=== PATIENT | male | born 1955 | race Caucasian/White ===

== ENCOUNTER → 2022-05-26 09:19 | Outpatient (BNVA) | payer OTHER, SELFPAY | PROVIDERS: PCP Internal Medicine; Visit Provider Nurse Practitioner Family | DX: Z13.89 Encounter for screening for other disorder (principal) ==

== ENCOUNTER 2022-09-01 09:12 | Day surgery (SDC) | payer OTHER, SELFPAY ==
[2022-08-28 09:15] VITALS: BMI 26.5
--- NOTE | 2022-08-29 10:44 | P.CONAN_ITS ---
Documented by User: Karely Reynaga NP 08/29/22 10:44 HPI - Anesthesia Eval Consult details Narrative: 67yo M for Colonoscopy [facility] Past Medical History Medical History (Updated 08/28/22 @ 09:19 by Marita Barros RN) Anxiety Arthritis Diverticulitis HTN (hypertension) Family History Family History (Updated 05/26/22 @ 09:42 by Annette Rapp) Father Prostate cancer HTN (hypertension) Brother Prostate cancer Mother HTN (hypertension) Diabetes Sister Breast cancer Surgical History Surgical History (Updated 09/01/22 @ 10:05 by Maritza Soni) H/O colonoscopy Hx of hernia repair Social History Social History (Updated 05/26/22 @ 09:38 by Annette Rapp) Household Members: Spouse Are you a primary care management associate to a significant other at home: No Do you presently have visiting nurse or other home services: No Alcohol intake: current Alcohol intake frequency: holidays/special occasions only Patient Tobacco Use Status: Never used Tobacco Use of substances other than those prescribed or required for medical reasons: No Have you been hit, kicked, punched, or otherwise hurt by someone within the past year? If so, by whom?: No Advance Directives: No Advance Directives Information Provided: Yes Advance Directives on File: No Recently lost weight without trying: No Eating poorly because of decreased appetite: No Nutrition Risks: No Nutritional Risk Poor oral hygiene: No Meds Allergies Allergy/AdvReac Type Severity Reaction Status Date / Time Seafood Allergy Severe MUSSELS-THROAT Uncoded 09/01/22 09:58 SWELLING Home Medications Medication Instructions Recorded Confirmed Last Taken Type fluorouracil 5 % topical cream 1 appl topical BEDTIME 05/26/22 09/01/22 Unknown History fluticasone propionate 50 2 spray intranasal DAILY 05/26/22 09/01/22 Unknown History mcg/actuation nasal spray,suspension lisinopril 20 mg tablet 20 mg PO BEDTIME 05/26/22 09/01/22 08/31/22 History lorazepam 0.5 mg tablet 0.5 mg PO Q4H PRN Anxiety 05/26/22 09/01/22 Unknown History metoprolol succinate 50 mg 50 mg PO BEDTIME 05/26/22 09/01/22 08/31/22 History tablet,extended release 24 hr PreserVision AREDS-2 1 tab PO BID 08/28/22 09/01/22 Unknown History Exam Exam Date and Time: August 29, 2022 1044 Height,Weight and Vital Signs: Height 5 ft 10 in Weight 83.915 kg Assessment and Plan Assessment Anesthesia Assessment: Chart Reviewed Documented by User: Marina Queen MD 09/01/22 10:35 [facility] Past Medical History Medical History (Updated 08/28/22 @ 09:19 by Marita Barros RN) Anxiety Arthritis Diverticulitis HTN (hypertension) Family History Family History (Updated 05/26/22 @ 09:42 by Annette Rapp) Father Prostate cancer HTN (hypertension) Brother Prostate cancer Mother HTN (hypertension) Diabetes Sister Breast cancer Family history of problems with anesthesia: No Surgical History Surgical History (Updated 09/01/22 @ 10:05 by Maritza Soni) H/O colonoscopy Hx of hernia repair History of Problems with Anesthesia: No Social History Social History (Updated 05/26/22 @ 09:38 by Annette Rapp) Household Members: Spouse Are you a primary care management associate to a significant other at home: No Do you presently have visiting nurse or other home services: No Alcohol intake: current Alcohol intake frequency: holidays/special occasions only Patient Tobacco Use Status: Never used Tobacco Use of substances other than those prescribed or required for medical reasons: No Have you been hit, kicked, punched, or otherwise hurt by someone within the past year? If so, by whom?: No Advance Directives: No Advance Directives Information Provided: Yes Advance Directives on File: No Recently lost weight without trying: No Eating poorly because of decreased appetite: No Nutrition Risks: No Nutritional Risk Poor oral hygiene: No Meds Allergies Allergy/AdvReac Type Severity Reaction Status Date / Time Seafood Allergy Severe MUSSELS-THROAT Uncoded 09/01/22 09:58 SWELLING Home Medications Medication Instructions Recorded Confirmed Last Taken Type fluorouracil 5 % topical cream 1 appl topical BEDTIME 05/26/22 09/01/22 Unknown History fluticasone propionate 50 2 spray intranasal DAILY 05/26/22 09/01/22 Unknown History mcg/actuation nasal spray,suspension lisinopril 20 mg tablet 20 mg PO BEDTIME 05/26/22 09/01/22 08/31/22 History lorazepam 0.5 mg tablet 0.5 mg PO Q4H PRN Anxiety 05/26/22 09/01/22 Unknown History metoprolol succinate 50 mg 50 mg PO BEDTIME 05/26/22 09/01/22 08/31/22 History tablet,extended release 24 hr PreserVision AREDS-2 1 tab PO BID 08/28/22 09/01/22 Unknown History Exam Airway Mallampati Class: II TM Dist: >3cm Neck ROM: Full Heart: 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
[2022-09-01 10:05] VITALS: BP 151/81; PULSE 69; RESP 16; TEMP 36.5; O2SAT 98
[2022-09-01] MEDS: Lactated Ringers 1,000 ML 100 ML IVCONT (10:20)
--- NOTE | 2022-09-01 10:46 | MHC.SHP ---
Pre-Procedural Eval Section A Date of Service: 09/01/22 The patient is an INPATIENT: No The History & Physical has been completed within 30 days and I have reviewed it.: No Section B Chief Complaint: Screening Relevant Family History (Specify if Yes): No Relevant Social History: None Present Medications: see Short Stay Collaborative assessment Medical History: Significant History (hypertension, arthritis) History of Previous Operations: Relevant previous surgery/procedure and date(s) (Hx of hernia repair) Allergies: Allergies Allergy/AdvReac Type Severity Reaction Status Date / Time Seafood Allergy Severe MUSSELS-THROAT Uncoded 09/01/22 09:58 SWELLING Review of Systems Sugical H&P ROS: Negative: Constitution, Cardiovascular, Respiratory and Gastrointestinal Exam Surgical H&P Exam: Normal: Heart, Normal: Lungs, Normal: Extremities and Normal: Abdomen Plan Diagnosis/Plan: Unchanged I have reviewed the history and physical and performed a pertinent physical examination on my patient. No changes have occurred unless specified. Time Spent With Patient Time: Total time managing care of this patient today ____ minutes.
--- NOTE | 2022-09-01 12:44 | W.PM.OPN ---
Operative Note Operative Note Date of Service: 09/01/22 Narrative: COLONOSCOPY TILL CECUM WITH SNARE POLYPECTOMY, SUBMUCOSAL INJECTION AND HEMOCLIP PLACEMENT Pre-op diagnosis: Colon cancer screening Post-op diagnosis:? Colon polyps, diverticulosis, hemorrhoids Endoscopist:? Carlos Eduardo Ferrer MD Anesthesia:?MAC Consent: Indications for the procedure and potential complications of bleeding, perforation, reaction to medications and missed diagnosis were discussed with the patient and informed consent was obtained. Instrument: Olympus CF H 190 L variable stiffness adult colonoscope Monitoring: Vital signs and clinical assessment, intermittent blood pressure monitoring, continuous EKG monitoring, Pulse oximetry and Carbon Dioxide monitoring were done throughout the procedure. Please see anesthesia flowsheet. Colon withdrawl time was 24 minutes. Procedure: The patient was placed in the left lateral decubitis position and pre-procedure medications were administered. After a digital rectal examination of the ano-rectum, the video colonoscope was inserted into the rectum and advanced through the colon to the cecum. The colonoscope was slowly withdrawn in a retrograde panoramic fashion and the colon mucosa was carefully examined including a retroflexed view of the rectum. Findings and interventions are described below. Procedure Difficulty: Without difficulty Findings: Terminal Ileum: Not evaluated Cecum: A 2.5 x 2 cms flat polyp in the cecum. Polyp was raised with 3 cc of Eleview and removed with hot snare. Residual polyp at the margins was ablated with cautery using the snare tip. Polypectomy site was closed with 1 hemoclip. Ascending Colon: A 10 mm sessile polyp in the proximal AC removed with a hot snare and polyp was not retrieved. Scattered moderate diverticulosis throughout the colon Transverse Colon: Scattered moderate diverticulosis throughout the colon Descending Colon: Scattered moderate diverticulosis throughout the colon Sigmoid Colon: Moderate diverticulosis Rectum: Normal Ano-rectum: Moderate internal hemorrhoids Colon preparation: Good after some irrigation - scattered stool balls in the left colon due to diverticulosis Impression and Post Procedure Diagnosis: Colonoscopy Findings: One large and one medium sized polyps removed Moderate diverticulosis seen in the entire colon Moderate hemorrhoids on retroflexed exam. Plan: Letter will be sent with pathology results Repeat Colonoscopy interval based on path results - in 1 year if polyps are adenomatous (to check polypectomy site in the cecum) and 10 years if polyps are hyperplastic. Above findings were reviewed with the patient and colon polyps and diverticulosis handouts were given in the discharge area
[2022-09-01 12:45] VITALS: BP 118/62; PULSE 70; RESP 16; TEMP 36.3; O2SAT 97
[2022-09-01 13:00] VITALS: BP 139/85; PULSE 62; RESP 16; TEMP 36.1; O2SAT 99
== END 2022-09-01 14:04 | disposition home or self-care (01) ==
PROVIDERS: PCP Internal Medicine; Visit Provider Internal Medicine Gastroenterology
PROC: 0DJD8ZZ Inspection of Lower Intestinal Tract, Via Natural or Artificial Opening Endoscopic (ICD-10-PCS; CPT 45378; principal; 2022-09-01 11:10)
DX: Z12.11 Encounter for screening for malignant neoplasm of colon (principal); D12.0 Benign neoplasm of cecum; K63.5 Polyp of colon; K57.30 Diverticulosis of large intestine without perforation or abscess without bleeding; K64.8 Other hemorrhoids; I10 Essential (primary) hypertension; Z79.899 Other long term (current) drug therapy
CPT/HCPCS: 45385; 45381; 88305

== ENCOUNTER 2022-09-02 14:25 | Observation (INO) | payer OTHER, SELFPAY ==
[2022-09-02 14:36] VITALS: BP 167/98; PULSE 89; RESP 20; TEMP 35.9; O2SAT 95; BMI 26.2
--- NOTE | 2022-09-02 14:37 | ED.GIBLEED ---
HPI - GI Bleed General Chief complaint: GI Bleed <LACY Marie - Last Filed: 09/02/22 14:43> Stated complaint: Colonoscopy T-1/Rectal bleed <LACY Marie - Last Filed: 09/02/22 14:43> Time Seen by Provider: 09/02/22 15:02 <LACY Marie - Last Filed: 09/02/22 14:43> Source: patient <Lorna Carty MD - Last Filed: 09/02/22 18:36> Mode of arrival: ambulatory <Lorna Carty MD - Last Filed: 09/02/22 18:36> Limitations: no limitations <Lorna Carty MD - Last Filed: 09/02/22 18:36> History of Present Illness HPI Narrative: Patient comes to the emergency room complaining of a GI bleed. Yesterday, he had a colonoscopy, 2 polyps were removed. Patient states that he has mild abdominal cramping, this morning he had 2 small bowel movements, then he had 2 larger bowel movements mostly containing blood clots. Patient denies chest pain, shortness of breath, lightheadedness. Patient spoke with Dr. Ferrer, who recommended him to come to the emergency room and be admitted for observation and possible colonoscopy in the morning. <Lorna Carty MD - Last Filed: 09/02/22 18:36> Related Data Home medications: Home Medications Medication Instructions Recorded Confirmed fluticasone propionate 50 2 spray intranasal BEDTIME 05/26/22 09/02/22 mcg/actuation nasal spray,suspension lisinopril 20 mg tablet 20 mg PO BEDTIME 05/26/22 09/02/22 lorazepam 0.5 mg tablet 0.5 mg PO Q4H PRN Anxiety 05/26/22 09/02/22 metoprolol succinate 50 mg 50 mg PO BEDTIME 05/26/22 09/02/22 tablet,extended release 24 hr vit C 250 mg-vit E 90 mg-zinc 40 1 tab PO BID 09/02/22 09/02/22 mg-copper 1 [id number] capsule (PreserVision AREDS-2) <LACY Marie - Last Filed: 09/02/22 14:43> Allergies/Adverse reactions: Allergies Allergy/AdvReac Type Severity Reaction Status Date / Time Seafood Allergy Severe MUSSELS-THROAT Uncoded 09/01/22 09:58 SWELLING <LACY Marie - Last Filed: 09/02/22 14:43> Review of Systems Review of Systems: Constitutional : No Weight loss, No Fever, No Chills, No Night Sweats, No Fatigue, No Malaise ENT/Mouth : No Hearing loss, No Ear Pain, No Nasal Congestion, No Sinus Pain, No Hoarseness, No sore throat, No Rhinorrhea, No Swallowing Difficulty Eyes: No Eye Pain, No Swelling, No Redness, No Foreign Body, No Discharge, No Vision Changes Cardiovascular : No Chest Pain, No SOB, No Dyspnea on Exertion, No Orthopnea, No Edema, No Palpitations Respiratory : No Cough, No Sputum, No Wheezing, No Smoke Exposure, No Dyspnea Gastrointestinal : No Nausea, No Vomiting, No Diarrhea, No Constipation, lining of abdominal cramping, complaining of rectal bleeding Genitourinary : no irregular bleeding, No Dysuria, No Urinary Frequency, No Hematuria, No Urinary Incontinence, No Urgency, No Flank Pain, No Urinary Flow Changes, No Hesitancy Musculoskeletal : No joint pain, No Myalgias, No Joint Swelling Skin : No Skin Lesions, No rash Neuro : No Weakness, No Numbness, No Paresthesias, No Loss of Consciousness, No Dizziness, No Headache Psych : No Anxiety/Panic, No Depression, No SI/HI/AH/VH, No Social Issues, Heme/Lymph: No Bruising, No Bleeding,No Lymphadenopathy Endocrine : No Polyuria, No Polydipsia, No Temperature Intolerance <Lorna Carty MD - Last Filed: 09/02/22 18:36> [facility] Past Medical History Medical History: Medical History Anxiety Arthritis Diverticulitis HTN (hypertension) <LACY Marie - Last Filed: 09/02/22 14:43> Surgical History: Surgical History (Updated 09/01/22 @ 10:05 by Maritza Soni) H/O colonoscopy Hx of hernia repair <LACY Marie - Last Filed: 09/02/22 14:43> Family History Family History: Family History (Updated 05/26/22 @ 09:42 by Annette Rapp) Father Prostate cancer HTN (hypertension) Brother Prostate cancer Mother HTN (hypertension) Diabetes Sister Breast cancer <LACY Marie - Last Filed: 09/02/22 14:43> Social History Social History: Social History (Updated 05/26/22 @ 09:38 by Annette Rapp) Household Members: Spouse Are you a primary certified social workers in health care to a significant other at home: No Do you presently have visiting nurse or other home services: No Alcohol intake: current Alcohol intake frequency: a few times a month Patient Tobacco Use Status: Never used Tobacco Smoked in Last 30 Days: No Advance Directives: No Advance Directives Information Provided: Yes <LACY Marie - Last Filed: 09/02/22 14:43> Physical Exam Vital Signs: Vital Signs: Last Vital Signs Temp 98.1 F 09/02/22 15:28 Pulse 103 H 09/02/22 15:28 Resp 20 09/02/22 15:28 BP 147/92 H 09/02/22 15:28 Pulse Ox 95 09/02/22 15:28 O2 Del Method Room Air 09/02/22 15:28 BMI result Body Mass Index 26.2 <LACY Marie - Last Filed: 09/02/22 14:43> Vital Signs: Last Vital Signs Temp 98.1 F 09/02/22 15:28 Pulse 103 H 09/02/22 15:28 Resp 20 09/02/22 15:28 BP 147/92 H 09/02/22 15:28 Pulse Ox 95 09/02/22 15:28 O2 Del Method Room Air 09/02/22 15:28 BMI result Body Mass Index 26.2 <Lorna Carty MD - Last Filed: 09/02/22 18:36> Const: Other: Appearance: Alert. Oriented X3. No acute distress. Eyes: Pupils equal, round and reactive to light. ENT: Pharynx normal. Neck: Normal inspection. Neck supple. No lymph nodes noted. No crepitus CVS: Normal heart rate and rhythm. Pulses normal. Normal S1 and S2 Respiratory: No respiratory distress. Breath sounds normal. No Wheezing. No rales Abdomen: Soft and nontender. No rigidity. No distention. Digital rectal exam shows bright red blood Skin: Skin warm and dry. Normal skin color. Normal skin turgor. Extremities: No lower extremity edema. No Lacerations. No Rash Neuro: Oriented X 3. No motor deficit. No sensory deficit. Moving all extremities. No slurred speech. CN 2 through 12 grossly intact Psych: calm, cooperative, normal affect <Lorna Carty MD - Last Filed: 09/02/22 18:36> Course Course Course Narrative: RME: 67yo M w/PMHx anxiety, arthritis, diverticulitis, HTN, sent to ED by Dr. Ferrer c/o dark red rectal bleeding w/clots x1 hour. Pt had outpatient colonoscopy yesterday with polp removal. denies N/V/D. Dr. Ferrer recommending admission for observation and possible repeat colonoscopy tomorrow EKG, labs, UA, occult stool ordered Full HPI, ROS and PE to be performed by primary ED provider. <LACY Marie - Last Filed: 09/02/22 14:43> Medical Decision Making Medical Decision Making [facility] Narrative: -Dr. Ferrer requested admission/observation -patient's hemoglobin/hematocrit is stable -patient's guaiac test is positive. If patient continues bleeding, he may need a repeat colonoscopy in the morning per Dr. Ferrer -Dr. Gómez saw the patient, recommended no CT scan for GI bleed -discussed the patient with the hospitalist team, patient being admitted <Lorna Carty MD - Last Filed: 09/02/22 18:36> Differential Diagnosis Differential Diagnoses: The differential diagnosis associated with the presentation includes (Post colonoscopy GI bleed, internal hemorrhoid, perforation) <Lorna Carty MD - Last Filed: 09/02/22 18:36> Admission/Observation Consideration of admission/observation: Escalation of care including admission/observation considered <Lorna Carty MD - Last Filed: 09/02/22 18:36> Consult Healthcare Provider Management of the patient was discussed with: Hospitalist and Microfilm Clerk <Lorna Carty MD - Last Filed: 09/02/22 18:36> Lab Data [facility] Lab Attestation statement: I reviewed the patient's lab results. <Lorna Carty MD - Last Filed: 09/02/22 18:36> Result Diagrams: 09/02/22 15:20 09/02/22 15:20 <LACY Marie - Last Filed: 09/02/22 14:43> Labs: Lab Results 09/02/22 09/02/22 09/02/22 Range/Units 15:14 15:19 15:20 WBC 6.0 (4.8-10.8) X10*3/uL RBC 5.19 (4.60-5.80) X10*6/uL Hgb 16.3 (14.0-18.0) g/dl Hct 45.7 (42.0-52.0) % MCV 88.1 (80.0-98.0) fL MCH 31.4 (27.0-33.0) pg MCHC 35.7 (31.0-36.0) g/dl RDW 11.6 (11.0-16.0) % Plt Count 265 (160-400) X10*3/uL MPV 9.8 (9.4-12.4) fL Immature Gran % (Auto) 0.3 (0.0-0.4) % Neut % (Auto) 84.6 H (45-73) % Lymph % (Auto) 7.0 L (20-40) % [place] % (Auto) 7.3 (2-11) % Eos % (Auto) 0.3 (0-4) % Baso % (Auto) 0.5 (0-2) % Lymph # (Auto) 0.4 L (1.2-4.9) X10*3/uL [place] # (Auto) 0.4 (0.1-1.2) X10*3/uL Eos # (Auto) 0.0 (0.0-0.4) X10*3/uL Baso # (Auto) 0.0 (0.0-0.2) X10*3/uL Abs Immat Gran (auto) 0.02 (0.00-0.03) X10*3/uL Absolute Neuts (auto) 5.1 (2.0-8.3) x10*3/uL Absolute Nucleated RBC 0.000 (0.0-0.012) X10*3/uL Nucleated RBC % (auto) 0.0 (0.0-0.2) /100WBC PT (10.0-13.1) SEC INR (0.9-1.1) Sodium (135-145) mmol/L Potassium (3.3-5.1) mmol/L Chloride (96-108) mmol/L Carbon Dioxide (22-29) mmol/L Anion Gap (12-20) BUN (9-16) mg/dL Creatinine (0.5-1.4) mg/dL Estim Creat Clear Calc Estimated GFR Random Glucose (60-115) mg/dL Calcium (8.4-10.2) mg/dL Magnesium (1.6-2.6) mg/dL Total Bilirubin (0.0-1.0) mg/dL AST (5-37) U/L ALT (0-40) U/L Alkaline Phosphatase (39-117) U/L Total Protein (6.5-8.0) g/dL Albumin (3.5-5.0) g/dL Lipase (8-78) U/L Urine Color Urine Appearance Urine pH (5.0-9.0) Ur Specific [place] (1.005-1.025) Urine Protein (Neg-Trace) mg/dL Urine Glucose (UA) (Negative) mg/dL Urine Ketones (Negative) mg/dL Urine Blood (Negative) Urine Nitrite (Negative) Ur Leukocyte Esterase (Negative) Stool Occult Blood POSITIVE (NEGATIVE) Blood Type AB Positive Antibody Screen NEGATIVE 09/02/22 09/02/22 09/02/22 Range/Units 15:20 15:20 15:44 WBC (4.8-10.8) X10*3/uL RBC (4.60-5.80) X10*6/uL Hgb (14.0-18.0) g/dl Hct (42.0-52.0) % MCV (80.0-98.0) fL MCH (27.0-33.0) pg MCHC (31.0-36.0) g/dl RDW (11.0-16.0) % Plt Count (160-400) X10*3/uL MPV (9.4-12.4) fL Immature Gran % (Auto) (0.0-0.4) % Neut % (Auto) (45-73) % Lymph % (Auto) (20-40) % [place] % (Auto) (2-11) % Eos % (Auto) (0-4) % Baso % (Auto) (0-2) % Lymph # (Auto) (1.2-4.9) X10*3/uL [place] # (Auto) (0.1-1.2) X10*3/uL Eos # (Auto) (0.0-0.4) X10*3/uL Baso # (Auto) (0.0-0.2) X10*3/uL Abs Immat Gran (auto) (0.00-0.03) X10*3/uL Absolute Neuts (auto) (2.0-8.3) x10*3/uL Absolute Nucleated RBC (0.0-0.012) X10*3/uL Nucleated RBC % (auto) (0.0-0.2) /100WBC PT 11.7 (10.0-13.1) SEC INR 1.0 (0.9-1.1) Sodium 141 (135-145) mmol/L Potassium 4.3 (3.3-5.1) mmol/L Chloride 105 (96-108) mmol/L Carbon Dioxide 28 (22-29) mmol/L Anion Gap 12 (12-20) BUN 11 (9-16) mg/dL Creatinine 0.87 (0.5-1.4) mg/dL Estim Creat Clear Calc 88.9 Estimated GFR > 60 Random Glucose 100 (60-115) mg/dL Calcium 9.8 (8.4-10.2) mg/dL Magnesium 2.2 (1.6-2.6) mg/dL Total Bilirubin 2.6 H (0.0-1.0) mg/dL AST 31 (5-37) U/L ALT 52 H (0-40) U/L Alkaline Phosphatase 71 (39-117) U/L Total Protein 7.0 (6.5-8.0) g/dL Albumin 4.3 (3.5-5.0) g/dL Lipase 40 (8-78) U/L Urine Color Yellow Urine Appearance Clear Urine pH 5.5 (5.0-9.0) Ur Specific [place] 1.020 (1.005-1.025) Urine Protein Negative (Neg-Trace) mg/dL Urine Glucose (UA) Negative (Negative) mg/dL Urine Ketones Trace (Negative) mg/dL Urine Blood Negative (Negative) Urine Nitrite Negative (Negative) Ur Leukocyte Esterase Negative (Negative) Stool Occult Blood (NEGATIVE) Blood Type Antibody Screen <LACY Marie - Last Filed: 09/02/22 14:43> Lab Results 09/02/22 09/02/22 09/02/22 Range/Units 15:14 15:19 15:20 WBC 6.0 (4.8-10.8) X10*3/uL RBC 5.19 (4.60-5.80) X10*6/uL Hgb 16.3 (14.0-18.0) g/dl Hct 45.7 (42.0-52.0) % MCV 88.1 (80.0-98.0) fL MCH 31.4 (27.0-33.0) pg MCHC 35.7 (31.0-36.0) g/dl RDW 11.6 (11.0-16.0) % Plt Count 265 (160-400) X10*3/uL MPV 9.8 (9.4-12.4) fL Immature Gran % (Auto) 0.3 (0.0-0.4) % Neut % (Auto) 84.6 H (45-73) % Lymph % (Auto) 7.0 L (20-40) % [place] % (Auto) 7.3 (2-11) % Eos % (Auto) 0.3 (0-4) % Baso % (Auto) 0.5 (0-2) % Lymph # (Auto) 0.4 L (1.2-4.9) X10*3/uL [place] # (Auto) 0.4 (0.1-1.2) X10*3/uL Eos # (Auto) 0.0 (0.0-0.4) X10*3/uL Baso # (Auto) 0.0 (0.0-0.2) X10*3/uL Abs Immat Gran (auto) 0.02 (0.00-0.03) X10*3/uL Absolute Neuts (auto) 5.1 (2.0-8.3) x10*3/uL Absolute Nucleated RBC 0.000 (0.0-0.012) X10*3/uL Nucleated RBC % (auto) 0.0 (0.0-0.2) /100WBC PT (10.0-13.1) SEC INR (0.9-1.1) Sodium (135-145) mmol/L Potassium (3.3-5.1) mmol/L Chloride (96-108) mmol/L Carbon Dioxide (22-29) mmol/L Anion Gap (12-20) BUN (9-16) mg/dL Creatinine (0.5-1.4) mg/dL Estim Creat Clear Calc Estimated GFR Random Glucose (60-115) mg/dL Calcium (8.4-10.2) mg/dL Magnesium (1.6-2.6) mg/dL Total Bilirubin (0.0-1.0) mg/dL AST (5-37) U/L ALT (0-40) U/L Alkaline Phosphatase (39-117) U/L Total Protein (6.5-8.0) g/dL Albumin (3.5-5.0) g/dL Lipase (8-78) U/L Urine Color Urine Appearance Urine pH (5.0-9.0) Ur Specific [place] (1.005-1.025) Urine Protein (Neg-Trace) mg/dL Urine Glucose (UA) (Negative) mg/dL Urine Ketones (Negative) mg/dL Urine Blood (Negative) Urine Nitrite (Negative) Ur Leukocyte Esterase (Negative) Stool Occult Blood POSITIVE (NEGATIVE) Blood Type AB Positive Antibody Screen NEGATIVE 09/02/22 09/02/22 09/02/22 Range/Units 15:20 15:20 15:44 WBC (4.8-10.8) X10*3/uL RBC (4.60-5.80) X10*6/uL Hgb (14.0-18.0) g/dl Hct (42.0-52.0) % MCV (80.0-98.0) fL MCH (27.0-33.0) pg MCHC (31.0-36.0) g/dl RDW (11.0-16.0) % Plt Count (160-400) X10*3/uL MPV (9.4-12.4) fL Immature Gran % (Auto) (0.0-0.4) % Neut % (Auto) (45-73) % Lymph % (Auto) (20-40) % [place] % (Auto) (2-11) % Eos % (Auto) (0-4) % Baso % (Auto) (0-2) % Lymph # (Auto) (1.2-4.9) X10*3/uL [place] # (Auto) (0.1-1.2) X10*3/uL Eos # (Auto) (0.0-0.4) X10*3/uL Baso # (Auto) (0.0-0.2) X10*3/uL Abs Immat Gran (auto) (0.00-0.03) X10*3/uL Absolute Neuts (auto) (2.0-8.3) x10*3/uL Absolute Nucleated RBC (0.0-0.012) X10*3/uL Nucleated RBC % (auto) (0.0-0.2) /100WBC PT 11.7 (10.0-13.1) SEC INR 1.0 (0.9-1.1) Sodium 141 (135-145) mmol/L Potassium 4.3 (3.3-5.1) mmol/L Chloride 105 (96-108) mmol/L Carbon Dioxide 28 (22-29) mmol/L Anion Gap 12 (12-20) BUN 11 (9-16) mg/dL Creatinine 0.87 (0.5-1.4) mg/dL Estim Creat Clear Calc 88.9 Estimated GFR > 60 Random Glucose 100 (60-115) mg/dL Calcium 9.8 (8.4-10.2) mg/dL Magnesium 2.2 (1.6-2.6) mg/dL Total Bilirubin 2.6 H (0.0-1.0) mg/dL AST 31 (5-37) U/L ALT 52 H (0-40) U/L Alkaline Phosphatase 71 (39-117) U/L Total Protein 7.0 (6.5-8.0) g/dL Albumin 4.3 (3.5-5.0) g/dL Lipase 40 (8-78) U/L Urine Color Yellow Urine Appearance Clear Urine pH 5.5 (5.0-9.0) Ur Specific [place] 1.020 (1.005-1.025) Urine Protein Negative (Neg-Trace) mg/dL Urine Glucose (UA) Negative (Negative) mg/dL Urine Ketones Trace (Negative) mg/dL Urine Blood Negative (Negative) Urine Nitrite Negative (Negative) Ur Leukocyte Esterase Negative (Negative) Stool Occult Blood (NEGATIVE) Blood Type Antibody Screen <Lorna Carty MD - Last Filed: 09/02/22 18:36> Critical Care Time Critical Care Time Critical Care Time: Yes <Lorna Carty MD - Last Filed: 09/02/22 18:36> Total Critical Care Time: 45 <Lorna Carty MD - Last Filed: 09/02/22 18:36> Attestation: I have personally provided critical care time. Time includes review of lab data, radiology results, discussion with consultants, and monitoring for potential decompensation. Intervention performed as documented. <Lorna Carty MD - Last Filed: 09/02/22 18:36> Discharge Plan Discharge Clinical Impression: GI (gastrointestinal bleed) <LACY Marie - Last Filed: 09/02/22 14:43> Patient Disposition: Admitted As Inpatient <LACY Marie - Last Filed: 09/02/22 14:43> Prescriptions: No Action PreserVision AREDS-2 250-90-40-1 mg Capsule 1 tab PO BID lisinopril 20 mg tablet 20 mg PO BEDTIME metoprolol succinate 50 mg tablet extended release 24 hr 50 mg PO BEDTIME lorazepam 0.5 mg tablet 0.5 mg PO Q4H PRN (Reason: Anxiety) fluticasone propionate 50 mcg/actuation spray,suspension 2 spray intranasal BEDTIME <LACY Marie - Last Filed: 09/02/22 14:43>
--- NOTE | 2022-09-02 14:39 | ECG_ITS ---
Test Reason : GI BLEED Blood Pressure : / mmHG Vent. Rate : 083 BPM Atrial Rate : 083 BPM P-R Int : 148 ms QRS Dur : 094 ms QT Int : 368 ms P-R-T Axes : 032 004 033 degrees QTc Int : 432 ms Normal sinus rhythm Normal ECG When compared with ECG of 03-JUN-2004 16:58, No significant change was found Referred By: Joyce Darby Electronically Signed By:KADI GARCIA
[2022-09-02 15:03] VITALS: BP 152/95; PULSE 78
[2022-09-02 15:04] VITALS: BP 149/91; PULSE 88
[2022-09-02 15:05] VITALS: BP 151/101; PULSE 91
--- NOTE | 2022-09-02 15:19 | PHA.MEDREC ---
Pharmacy Consult ? Medication Reconciliation Pharmacy has completed the medication reconciliation.
[2022-09-02 15:27] LABS: MANUAL DIFF FLAG NO
[2022-09-02 15:28] VITALS: BP 147/92; PULSE 103; RESP 20; TEMP 36.7; O2SAT 95
[2022-09-02 15:28] LABS: OBS Int Ctl Valid YES; OBS1 POSITIVE (NEGATIVE)
[2022-09-02 15:35] LABS: Basophils Percent Auto 0.5 % (0-2); Eosinophils Percent Auto 0.3 % (0-4); Hematocrit 45.7 % (42.0-52.0); Hemoglobin 16.3 g/dl (14.0-18.0); Imm Gran Abs Auto 0.02 X10*3/uL (0.00-0.03); Imm Gran Pct Auto 0.3 % (0.0-0.4); Lymphocytes Absolute Auto 0.4 X10*3/uL (1.2-4.9); Mean Corpuscular HGB Conc 35.7 g/dl (31.0-36.0); Mean Corpuscular Hemoglobin 31.4 pg (27.0-33.0); Mean Corpuscular Volume 88.1 fL (80.0-98.0); Mean Platelet Volume 9.8 fL (9.4-12.4); Monocytes Absolute Auto 0.4 X10*3/uL (0.1-1.2); Monocytes Percent Auto 7.3 % (2-11); Neutrophils Absolute Auto 5.1 x10*3/uL (2.0-8.3); Neutrophils Percent Auto 84.6 % (45-73); Platelet Count 265 X10*3/uL (160-400); Prothrombin Time 11.7 SEC (10.0-13.1); Red Blood Count 5.19 X10*6/uL (4.60-5.80); Red Cell Distribution Width 11.6 % (11.0-16.0)
[2022-09-02 15:50] LABS: Appearance Urine Clear; Color Urine Yellow; Glucose Urine UA Negative (Negative); Leukocyte Esterase Urine Negative (Negative); Nitrite Urine Negative (Negative); PH 5.5 (5.0-9.0); Urine Blood Negative (Negative); Urine Ketones Trace mg/dL (Negative); Urine Protein Negative (Neg-Trace)
[2022-09-02 16:23] LABS: Alanine Aminotransferase 52 U/L (0-40); Albumin Level 4.3 g/dL (3.5-5.0); Alkaline Phosphatase 71 U/L (39-117); Anion Gap 12 (12-20); Aspartate Amino Transferase 31 U/L (5-37); Bilirubin Total 2.6 mg/dL (0.0-1.0); Blood Urea Nitrogen 11 mg/dL (9-16); Calcium 9.8 mg/dL (8.4-10.2); Carbon Dioxide 28 mmol/L (22-29); Chloride 105 mmol/L (96-108); Creatinine Clr Calc Pharmacy 88.9; Estimated Glomerular Filt Rate > 60; Glucose Random 100 mg/dL (60-115); Lipase 40 U/L (8-78); Magnesium 2.2 mg/dL (1.6-2.6); Potassium 4.3 mmol/L (3.3-5.1); Sodium 141 mmol/L (135-145)
--- NOTE | 2022-09-02 17:51 | PC.NURSE ---
Dr Gómez see at bedside earlier, states no CT needed at this time and plan for clear liquids, bowel prep with plan for colonoscopy tomorrow. Dr Rivas aware.
--- NOTE | 2022-09-02 18:43 | P.HPHOSP_ITS ---
History of Present Illness Date of Service: 09/02/22 Attending physician on admission: [facility] Chief Complaint: post colonoscopy bleeding 67-year-old male with history of hypertension and anxiety presents to the ED at the recommendation of Gastroenterology for evaluation of bright red blood per rectum. Patient underwent colonoscopy yesterday during which polyp was removed. Today around 13:30, had a bowel movement and began passing dark red clots per rectum. Since then, he states he has had 6 episodes of rectal bleeding with dark red blood and clots. There is mild diffuse abdominal discomfort. No nausea, vomiting, diarrhea, constipation. Denies rectal pain. He spoke with Dr. Ferrer who recommended he present for evaluation. On arrival, he is hemodynamically stable. H/H 16.3/40 5.7%. Renal function and electrolyte levels normal. Total bilirubin slightly elevated at 2.6. Urinalysis unremarkable. Stool occult blood positive. Type and screen performed. EKG sh owing NSR, rate 83, no ST/T-wave abnormality. At the recommendation of Gastroenterology, patient to be observed overnight for any further GI bleeding with plan for colonoscopy in the morning if bleeding persists. Review of Systems Review of Systems: General: No fevers, malaise, unintentional weight loss HEENT: No blurred vision, diplopia. No sore throat, nasal congestion, rhinorrhea, sinus pain, ear pain Cardiovascular: No chest pain, palpitations, or leg edema Respiratory: No shortness of breath, wheezing, cough GI: +BRBPR, +mild abd pain. No nausea, vomiting, diarrhea, constipation, melena Neuro: No headaches, weakness, paresthesias Skin: No rashes or lesions [facility] Medical History Anxiety Arthritis Diverticulitis HTN (hypertension) Family History (Updated 05/26/22 @ 09:42 by Annette Rapp) Father Prostate cancer HTN (hypertension) Brother Prostate cancer Mother HTN (hypertension) Diabetes Sister Breast cancer Surgical History (Updated 09/01/22 @ 10:05 by Maritza Soin) H/O colonoscopy Hx of hernia repair Social History (Updated 05/26/22 @ 09:38 by Annette Rapp) Household Members: Spouse Are you a primary healthcare receptionist to a significant other at home: No Do you presently have visiting nurse or other home services: No Alcohol intake: current Alcohol intake frequency: a few times a month Patient Tobacco Use Status: Never used Tobacco Smoked in Last 30 Days: No Advance Directives: No Advance Directives Information Provided: Yes Meds Allergies Allergy/AdvReac Type Severity Reaction Status Date / Time Seafood Allergy Severe MUSSELS-THROAT Uncoded 09/01/22 09:58 SWELLING Active Medications: Current Medications Acetaminophen (Acetaminophen 325 Mg Tablet) 650 mg PO Q6H PRN PRN Reason: Pain, Mild (Pain Scale 1-3) Docusate Sodium (Docusate Sodium 100 Mg Capsule) 100 mg PO DAILY PRN PRN Reason: Constipation Ondansetron HCl (Ondansetron Hcl 4 Mg/2 Ml Vial) 4 mg IVPUSH Q8H PRN PRN Reason: Nausea and Vomiting Sodium Chloride (0.9 % Sodium Chloride Flush 3 Ml Syringe) [facility] Medications Medication Instructions Recorded Confirmed Last Taken Type fluticasone propionate 50 2 spray intranasal BEDTIME 05/26/22 09/02/22 09/01/22 History mcg/actuation nasal spray,suspension lisinopril 20 mg tablet 20 mg PO BEDTIME 05/26/22 09/02/22 09/01/22 History lorazepam 0.5 mg tablet 0.5 mg PO Q4H PRN Anxiety 05/26/22 09/02/22 09/01/22 History metoprolol succinate 50 mg 50 mg PO BEDTIME 05/26/22 09/02/22 09/01/22 History tablet,extended release 24 hr vit C 250 mg-vit E 90 mg-zinc 40 1 tab PO BID 09/02/22 09/02/22 09/02/22 History mg-copper 1 [id number] capsule (PreserVision AREDS-2) Physical Exam Vital Signs and Narrative: Vital Signs: Last Vital Signs Temp 98.1 F 09/02/22 15:28 Pulse 103 H 09/02/22 15:28 Resp 20 09/02/22 15:28 BP 147/92 H 09/02/22 15:28 Pulse Ox 95 09/02/22 15:28 O2 Del Method Room Air 09/02/22 15:28 BMI result Body Mass Index 26.2 Constitutional - Awake and Alert, No apparent distress Eyes - PERRLA, EOMI Cardiovascular - S1S2, RRR, No edema Respiratory - Normal lung expansion, Normal respiratory effort, No respiratory d istress, CTA bilaterally Gastrointestinal - NT / ND; +BS; No rebound or guarding Extremities - no calf tenderness bilaterally, no swelling Skin - Warm/Dry Neurological - Alert & oriented x3 Psychological - Appropriate affect Results Labs 09/02/22 15:20 09/02/22 15:20 Labs: Laboratory Results - last 24 hr 09/02/22 09/02/22 09/02/22 15:14 15:19 15:20 MCV 88.1 MCH 31.4 MCHC 35.7 RDW 11.6 Plt Count 265 MPV 9.8 Immature Gran % (Auto) 0.3 Neut % (Auto) 84.6 H Lymph % (Auto) 7.0 L [place] % (Auto) 7.3 Eos % (Auto) 0.3 Baso % (Auto) 0.5 Lymph # (Auto) 0.4 L [place] # (Auto) 0.4 Eos # (Auto) 0.0 Baso # (Auto) 0.0 Abs Immat Gran (auto) 0.02 Absolute Neuts (auto) 5.1 Absolute Nucleated RBC 0.000 Nucleated RBC % (auto) 0.0 PT INR Anion Gap Estim Creat Clear Calc Estimated GFR Random Glucose Calcium Magnesium Total Bilirubin AST ALT Alkaline Phosphatase Total Protein Albumin Lipase Urine Color Urine Appearance Urine pH Ur Specific [place] Urine Protein Urine Glucose (UA) Urine Ketones Urine Blood Urine Nitrite Ur Leukocyte Esterase Stool Occult Blood POSITIVE Blood Type AB Positive Antibody Screen NEGATIVE 09/02/22 09/02/22 09/02/22 15:20 15:20 15:44 MCV MCH MCHC RDW Plt Count MPV Immature Gran % (Auto) Neut % (Auto) Lymph % (Auto) [place] % (Auto) Eos % (Auto) Baso % (Auto) Lymph # (Auto) [place] # (Auto) Eos # (Auto) Baso # (Auto) Abs Immat Gran (auto) Absolute Neuts (auto) Absolute Nucleated RBC Nucleated RBC % (auto) PT 11.7 INR 1.0 Anion Gap 12 Estim Creat Clear Calc 88.9 Estimated GFR > 60 Random Glucose 100 Calcium 9.8 Magnesium 2.2 Total Bilirubin 2.6 H AST 31 ALT 52 H Alkaline Phosphatase 71 Total Protein 7.0 Albumin 4.3 Lipase 40 Urine Color Yellow Urine Appearance Clear Urine pH 5.5 Ur Specific [place] 1.020 Urine Protein Negative Urine Glucose (UA) Negative Urine Ketones Trace Urine Blood Negative Urine Nitrite Negative Ur Leukocyte Esterase Negative Stool Occult Blood Blood Type Antibody Screen Assessment and Plan (1) GI (gastrointestinal bleed): Status: Acute Plan 67-year-old male with history of hypertension and anxiety to be observed overnight for any further GI bleeding with plan for colonoscopy in the morning if bleeding persists. #Post-colonoscopy bleeding -passing dark red blood with clots per rectum -colonoscopy yesterday with polyp removal -H/H stable at 16.3/45.7% -Plan for colonoscopy tomorrow if bleeding persists overnight -Jewell text sent to Dr. Ferrer regarding GoLytely prep but response not yet received. Discussed with Dr. Zaldivar. Will initiate colonoscopy prep -Clear liquids tonight, NPO after midnight -T&S completed #HTN- reasonably controlled -continue metoprolol, hold lisinopril #anxiety -lorazepam prn DVT prophylaxis- SCPs Full code Time Spent With Patient Time: Total time managing care of this patient today ____ minutes. Quality Stroke Does the patient have a stroke diagnosis?: No VTE Prior VTE?: No VTE Risk Level:: Medical - moderate - high VTE Device Contraindication: N/A - Device Ordered VTE Drug Contraindication: Treatment Not Indicated
[2022-09-02 19:45] VITALS: BP 125/83; PULSE 85; RESP 15; TEMP 36.8; O2SAT 96
[2022-09-02] MEDS: Metoprolol Succinate ER 50 MG TAB.ER.24H PO (20:22)
--- NOTE | 2022-09-02 20:44 | P.CNGI_ITS ---
History of Present Illness Data of Consult Service Date: 09/02/22 Requesting physician: Mary Ellen Reeder Primary Care Provider: Kaidne Mahan MD HPI Reason for consult: Post polypectomy bleeding 67 YM with hypertension and anxiety seen at [facility] ED today for evaluation of bright red blood per rectum.? 09/01/22 Pt had an uneventful screening colonoscopy which showed a 2.5 cms flat polyp in the cecum. Polyp was removed with a hot snare and polypectomy site was closed with a hemoclip.? A 2nd 10 mm sessile polyp was removed from the ascending colon with a hot snare. Today around 13:30, patient had a bowel movement and began passing dark red clots per rectum.? Since then, he states he has had 6 episodes of rectal bleeding with dark red blood and clots.? He complains of mild diffuse abdominal discomfort and excessive gas.? Pt denied nausea, vomiting, diarrhea, constipation or rectal pain.? Pt called the GI clinic and was in the ED waiting room when I called him back.? On arrival, he is hemodynamically stable.? H/H 16.3/40 5.7%.? Renal function and electrolyte levels normal.? Total bilirubin slightly elevated at 2.6 (TB was 1.6 in 2019).? Urinalysis unremarkable.? Stool occult blood positive.? Type and screen performed.? EKG showing NSR, rate 83, no ST/T-wave abnormality.? Patient was admitted for further management with plan for repeat colonoscopy in the morning if bleeding persists. Review of Systems Review of Systems: General: No fevers, malaise, unintentional weight loss HEENT: No blurred vision, diplopia. No sore throat, nasal congestion, rhinorrhea, sinus pain, ear pain Cardiovascular: No chest pain, palpitations, or leg edema Respiratory: No shortness of breath, wheezing, cough GI: +BRBPR, +mild abd pain. No nausea, vomiting, diarrhea, constipation, melena Neuro: No headaches, weakness, paresthesias Skin: No rashes or lesions PMFSH Past Medical History Medical History Anxiety Arthritis Diverticulitis HTN (hypertension) Family History Family History (Updated 05/26/22 @ 09:42 by Annette Rapp) Father Prostate cancer HTN (hypertension) Brother Prostate cancer Mother HTN (hypertension) Diabetes Sister Breast cancer Surgical History Surgical History (Updated 09/01/22 @ 10:05 by Maritza Soni) H/O colonoscopy Hx of hernia repair Social History Social History (Updated 05/26/22 @ 09:38 by Annette Rapp) Household Members: Spouse Are you a primary acute care surgeon to a significant other at home: No Do you presently have visiting nurse or other home services: No Alcohol intake: current Alcohol intake frequency: a few times a month Patient Tobacco Use Status: Never used Tobacco service: No Current occupational status: employed Meds Allergies Allergy/AdvReac Type Severity Reaction Status Date / Time Seafood Allergy Severe MUSSELS-THROAT Uncoded 09/01/22 09:58 SWELLING Active Medications: Current Medications Acetaminophen (Acetaminophen 325 Mg Tablet) 650 mg PO Q6H PRN PRN Reason: Pain, Mild (Pain Scale 1-3) Docusate Sodium (Docusate Sodium 100 Mg Capsule) 100 mg PO DAILY PRN PRN Reason: Constipation Fluticasone Propionate (Fluticasone Propionate Nasal 16 Gm [place]) 2 spray NOSTRIL-B BEDTIME [facility] Lorazepam (Lorazepam 0.5 Mg Tablet) 0.5 mg PO Q4H PRN PRN Reason: Anxiety Metoprolol Succinate (Metoprolol Succinate Er 50 Mg Tab.Er.24h) 50 mg PO BEDTIME [facility]; Protocol Last Admin: 09/02/22 20:22 Dose: 50 mg Multivitamins/Vitamin C (Multivitamin Tablet) 1 tab PO DAILY [facility] Ondansetron HCl (Ondansetron Hcl 4 Mg/2 Ml Vial) 4 mg IVPUSH Q8H PRN PRN Reason: Nausea and Vomiting Sodium Chloride (0.9 % Sodium Chloride Flush 3 Ml Syringe) 3 ml IVFLUSH QSHIFT [facility] Home Medications Medication Instructions Recorded Confirmed Last Taken Type fluticasone propionate 50 2 spray intranasal BEDTIME 05/26/22 09/02/22 09/01/22 History mcg/actuation nasal spray,suspension lisinopril 20 mg tablet 20 mg PO BEDTIME 05/26/22 09/02/22 09/01/22 History lorazepam 0.5 mg tablet 0.5 mg PO Q4H PRN Anxiety 05/26/22 09/02/22 09/01/22 History metoprolol succinate 50 mg 50 mg PO BEDTIME 05/26/22 09/02/22 09/01/22 History tablet,extended release 24 hr vit C 250 mg-vit E 90 mg-zinc 40 1 tab PO BID 09/02/22 09/02/22 09/02/22 History mg-copper 1 [id number] capsule (PreserVision AREDS-2) Physical Exam Vital Signs: Vital Signs: Last Vital Signs Temp 98.3 F 09/02/22 19:45 Pulse 85 09/02/22 19:45 Resp 15 09/02/22 19:45 BP 125/83 09/02/22 19:45 Pulse Ox 96 09/02/22 19:45 O2 Del Method Room Air 09/02/22 19:45 BMI result Body Mass Index 26.2 Const: General: healthy appearing and no acute distress Nutritional Appearance: overweight Orientation/consciousness: patient oriented x3 HEENT: Head: Yes normal to inspection Ears: hearing grossly normal bilaterally Mouth: Normal oral and palatal mucosa present Eyes: Sclerae: sclerae normal Pupils: Equal, round and reactive pupils present Neck: Neck: Yes normal visual inspection Chest: Chest palpation & inspection: normal inspection of the chest Resp: Effort & Inspection: normal respiratory effort Auscultation: clear to auscultation bilaterally Cardio: Palpation: normal PMI Rate: regular rate Rhythm: regular rhythm Heart sounds: S1 normal heart sound present, S2 normal heart sound present and no murmurs GI: Palpation (GI): Soft to palpation, nontender and No hepatosplenomegaly present Auscultation: normal bowel sounds Rectal Exam - Male: Yes deferred Skin: General skin exam: no rashes or lesions noted Neuro: General: patient oriented x3, gait normal and moves all extremities Cranial nerves: Yes Equal, round and reactive pupils present Psych: Appearance: grossly normal Mental Status: mental status grossly normal Results Labs 09/02/22 15:20 09/02/22 15:20 Labs: Short CBC 09/02/22 Range/Units 15:20 WBC 6.0 (4.8-10.8) X10*3/uL Hgb 16.3 (14.0-18.0) g/dl Hct 45.7 (42.0-52.0) % Plt Count 265 (160-400) X10*3/uL BMP 09/02/22 15:20 Sodium 141 Potassium 4.3 Chloride 105 Carbon Dioxide 28 BUN 11 Creatinine 0.87 Calcium 9.8 Liver Function 05/09/23 Range/Units 15:20 Total Bilirubin 2.6 H (0.0-1.0) mg/dL AST 31 (5-37) U/L ALT 52 H (0-40) U/L Alkaline Phosphatase 71 (39-117) U/L Albumin 4.3 (3.5-5.0) g/dL Urine 09/02/22 Range/Units 15:44 Urine Color Yellow Urine Appearance Clear Urine pH 5.5 (5.0-9.0) Ur Specific [place] 1.020 (1.005-1.025) Urine Protein Negative (Neg-Trace) mg/dL Urine Glucose (UA) Negative (Negative) mg/dL Assessment and Plan (1) GI (gastrointestinal bleed): Status: Resolved Plan 67 YM with hypertension and anxiety seen at [facility] ED today for evaluation of bright red blood per rectum.? Pt had colonoscopy on 09/01/22 with removal of a large cecal polyp - lower GI bleeding is likely from polypectomy site in the cecum. RECOMMENDATIONS: 1. Repeat CBC in 6 hours 2. If patient has continued bleeding, [facility] funk tonight for repeat colonoscopy in the am. Time Spent With Patient Time: Total time managing care of this patient today ____ minutes. Procedures Date of Service Date of Service: 09/02/22
[2022-09-02] MEDS: LORazepam 0.5 MG TABLET PO (21:15)
[2022-09-02] MEDS: PEG 3350/Na Sulf,Bicarb,Cl/KCL 4,000 ML SOLN.RECON 4000 ML PO (21:18)
[2022-09-02 21:21] LABS: Hematocrit 44.4 % (42.0-52.0); Hemoglobin 15.8 g/dl (14.0-18.0); Mean Corpuscular HGB Conc 35.6 g/dl (31.0-36.0); Mean Corpuscular Hemoglobin 31.7 pg (27.0-33.0); Mean Corpuscular Volume 89.2 fL (80.0-98.0); Platelet Count 301 X10*3/uL (160-400); Red Blood Count 4.98 X10*6/uL (4.60-5.80); Red Cell Distribution Width 11.9 % (11.0-16.0); White Blood Count 8.2 X10*3/uL (4.8-10.8)
[2022-09-03] VITALS (9 sets, daily range): BP systolic 109–147; BP diastolic 63–99; PULSE 66–92; RESP 14–18; TEMP 36.1–36.6; O2SAT 93–99
[2022-09-03 00:28] LABS: Hematocrit 39.9 % (42.0-52.0); Hemoglobin 14.2 g/dl (14.0-18.0)
[2022-09-03 06:15] LABS: MANUAL DIFF FLAG NO
[2022-09-03 06:21] LABS: Basophils Percent Auto 0.4 % (0-2); Eosinophils Percent Auto 0.2 % (0-4); Hematocrit 36.5 % (42.0-52.0); Hemoglobin 13.1 g/dl (14.0-18.0); Imm Gran Abs Auto 0.01 X10*3/uL (0.00-0.03); Imm Gran Pct Auto 0.2 % (0.0-0.4); Lymphocytes Absolute Auto 0.5 X10*3/uL (1.2-4.9); Lymphocytes Percent Auto 9.2 % (20-40); Mean Corpuscular HGB Conc 35.9 g/dl (31.0-36.0); Mean Corpuscular Hemoglobin 32.1 pg (27.0-33.0); Mean Corpuscular Volume 89.5 fL (80.0-98.0); Mean Platelet Volume 9.7 fL (9.4-12.4); Monocytes Absolute Auto 0.5 X10*3/uL (0.1-1.2); Monocytes Percent Auto 8.9 % (2-11); Neutrophils Absolute Auto 4.5 x10*3/uL (2.0-8.3); Neutrophils Percent Auto 81.1 % (45-73); Platelet Count 231 X10*3/uL (160-400); Red Blood Count 4.08 X10*6/uL (4.60-5.80); Red Cell Distribution Width 11.9 % (11.0-16.0); White Blood Count 5.5 X10*3/uL (4.8-10.8)
--- NOTE | 2022-09-03 06:35 | P.CNGI_ITS ---
History of Present Illness Data of Consult Service Date: 09/03/22 Requesting physician: Perry Zaldivar Primary Care Provider: Kaiden Mahan MD [facility] Reason for consult: acute blood loss anemia 67 yr old m who I am seeing for acute blood loss anemia. He had colonoscopy September 01 and had 2.5 cm polyp removed \since then he has noted recurrent episodes of bloody stools. HGB going down from 16 to now 13 g/dl [facility] Past Medical History Medical History Anxiety Arthritis Diverticulitis HTN (hypertension) Family History Family History (Updated 05/26/22 @ 09:42 by Annette Rapp) Father Prostate cancer HTN (hypertension) Brother Prostate cancer Mother HTN (hypertension) Diabetes Sister Breast cancer Surgical History Surgical History (Updated 09/01/22 @ 10:05 by Maritza Soni) H/O colonoscopy Hx of hernia repair Social History Social History (Updated 05/26/22 @ 09:38 by Annette Rapp) Household Members: Spouse Are you a primary career development counselor to a significant other at home: No Do you presently have visiting nurse or other home services: No Alcohol intake: current Alcohol intake frequency: a few times a month Patient Tobacco Use Status: Never used Tobacco Smoked in Last 30 Days: No Advance Directives: No Advance Directives Information Provided: Yes Meds Allergies Allergy/AdvReac Type Severity Reaction Status Date / Time Seafood Allergy Severe MUSSELS-THROAT Uncoded 09/01/22 09:58 SWELLING Active Medications: Current Medications Acetaminophen (Acetaminophen 325 Mg Tablet) 650 mg PO Q6H PRN PRN Reason: Pain, Mild (Pain Scale 1-3) Docusate Sodium (Docusate Sodium 100 Mg Capsule) 100 mg PO DAILY PRN PRN Reason: Constipation Fluticasone Propionate (Fluticasone Propionate Nasal 16 Gm [place]) 2 spray NOSTRIL-B BEDTIME [facility] Last Admin: 09/03/22 01:50 Dose: Not Given Lorazepam (Lorazepam 0.5 Mg Tablet) 0.5 mg PO Q4H PRN PRN Reason: Anxiety Last Admin: 09/02/22 21:15 Dose: 0.5 mg Metoprolol Succinate (Metoprolol Succinate Er 50 Mg Tab.Er.24h) 50 mg PO BE DTIME [facility]; Protocol Last Admin: 09/02/22 20:22 Dose: 50 mg Multivitamins/Vitamin C (Multivitamin Tablet) 1 tab PO DAILY [facility] Ondansetron HCl (Ondansetron Hcl 4 Mg/2 Ml Vial) 4 mg IVPUSH Q8H PRN PRN Reason: Nausea and Vomiting Sodium Chloride (0.9 % Sodium Chloride Flush 3 Ml Syringe) 3 ml IVFLUSH QSHIFT [facility] Last Admin: 09/03/22 01:51 Dose: Not Given Home Medications Medication Instructions Recorded Confirmed Last Taken Type fluticasone propionate 50 2 spray intranasal BEDTIME 05/26/22 09/02/22 09/01/22 History mcg/actuation nasal spray,suspension lisinopril 20 mg tablet 20 mg PO BEDTIME 05/26/22 09/02/22 09/01/22 History lorazepam 0.5 mg tablet 0.5 mg PO Q4H PRN Anxiety 05/26/22 09/02/22 09/01/22 History metoprolol succinate 50 mg 50 mg PO BEDTIME 05/26/22 09/02/22 09/01/22 History tablet,extended release 24 hr vit C 250 mg-vit E 90 mg-zinc 40 1 tab PO BID 09/02/22 09/02/22 09/02/22 History mg-copper 1 [id number] capsule (PreserVision AREDS-2) Physical Exam Vital Signs: Vital Signs: Last Vital Signs Temp 97.7 F 09/03/22 03:49 Pulse 88 09/03/22 03:49 Resp 16 09/03/22 03:49 BP 129/84 09/03/22 03:49 Pulse Ox 98 09/03/22 03:49 O2 Del Method Room Air 09/03/22 03:49 BMI result Body Mass Index 26.2 Results Labs 09/03/22 06:10 09/02/22 15:20 Labs: Short CBC 09/02/22 09/02/22 09/03/22 Range/Units 15:20 20:56 00:15 WBC 6.0 8.2 (4.8-10.8) X10*3/uL Hgb 16.3 15.8 14.2 (14.0-18.0) g/dl Hct 45.7 44.4 39.9 L (42.0-52.0) % Plt Count 265 301 (160-400) X10*3/uL 09/03/22 Range/Units 06:10 WBC 5.5 (4.8-10.8) X10*3/uL Hgb 13.1 L (14.0-18.0) g/dl Hct 36.5 L (42.0-52.0) % Plt Count 231 (160-400) X10*3/uL BMP 09/02/22 15:20 Sodium 141 Potassium 4.3 Chloride 105 Carbon Dioxide 28 BUN 11 Creatinine 0.87 Calcium 9.8 Liver Function 09/02/22 Range/Units 15:20 Total Bilirubin 2.6 H (0.0-1.0) mg/dL AST 31 (5-37) U/L ALT 52 H (0-40) U/L Alkaline Phosphatase 71 (39-117) U/L Albumin 4.3 (3.5-5.0) g/dL Urine 09/02/22 Range/Units 15:44 Urine Color Yellow Urine Appearance Clear Urine pH 5.5 (5.0-9.0) Ur Specific [place] 1.020 (1.005-1.025) Urine Protein Negative (Neg-Trace) mg/dL Urine Glucose (UA) Negative (Negative) mg/dL Assessment and Plan Time Spent With Patient Time: Total time managing care of this patient today ____ minutes.
[2022-09-03 06:51] LABS: Alanine Aminotransferase 46 U/L (0-40); Albumin Level 3.7 g/dL (3.5-5.0); Alkaline Phosphatase 56 U/L (39-117); Anion Gap 10 (12-20); Aspartate Amino Transferase 27 U/L (5-37); Bilirubin Total 2.7 mg/dL (0.0-1.0); Blood Urea Nitrogen 13 mg/dL (9-16); Calcium 8.7 mg/dL (8.4-10.2); Carbon Dioxide 30 mmol/L (22-29); Chloride 106 mmol/L (96-108); Creatinine Clr Calc Pharmacy 88.9; Estimated Glomerular Filt Rate > 60; Glucose Random 113 mg/dL (60-115); Potassium 4.4 mmol/L (3.3-5.1); Sodium 142 mmol/L (135-145); Total Protein 5.7 g/dL (6.5-8.0)
[2022-09-03] MEDS: 0.9 % Sodium Chloride Flush 3 ML SYRINGE IVFLUSH (08:07)
--- NOTE | 2022-09-03 09:10 | HO.PM.IMPN ---
Subjective Subjective Date of Service: 09/03/22 Interval History: f/u on rectal bleed after colonoscopy with polyp removal, still reporting some bleeding, Hct 16 to now 13 Physical Exam Vital Signs: Vital Signs: Last Vital Signs Temp 97.8 F 09/03/22 07:09 Pulse 78 09/03/22 07:09 Resp 16 09/03/22 07:09 BP 142/85 H 09/03/22 07:09 Pulse Ox 96 09/03/22 07:09 O2 Del Method Room Air 09/03/22 07:09 BMI result Body Mass Index 26.2 Const: Other: General: AO X 3, no acute distress Resp: CTA bilateral CVS: S1,S2,RRR GI: +BS, no abdominal tenderness, no distention Skin: No rash Neuro: motor grossly intact Psych: appropriate affect Objective Data Active Medications Acetaminophen (Acetaminophen 325 Mg Tablet) 650 mg PO Q6H PRN PRN Reason: Pain, Mild (Pain Scale 1-3) Docusate Sodium (Docusate Sodium 100 Mg Capsule) 100 mg PO DAILY PRN PRN Reason: Constipation Fluticasone Propionate (Fluticasone Propionate Nasal 16 Gm [place]) 2 spray NOSTRIL-B BEDTIME [facility] Last Admin: 09/03/22 01:50 Dose: Not Given Documented By: JEISON Non-Admin Reason: Med Not Available Lorazepam (Lorazepam 0.5 Mg Tablet) 0.5 mg PO Q4H PRN PRN Reason: Anxiety Last Admin: 09/02/22 21:15 Dose: 0.5 mg Documented By: JEISON Metoprolol Succinate (Metoprolol Succinate Er 50 Mg Tab.Er.24h) 50 mg PO BEDTIME [facility]; Protocol Last Admin: 09/02/22 20:22 Dose: 50 mg Documented By: JEISON Multivitamins/Vitamin C (Multivitamin Tablet) 1 tab PO DAILY [facility] Ondansetron HCl (Ondansetron Hcl 4 Mg/2 Ml Vial) 4 mg IVPUSH Q8H PRN PRN Reason: Nausea and Vomiting Sodium Chloride (0.9 % Sodium Chloride Flush 3 Ml Syringe) 3 ml IVFLUSH QSHIFT [facility] Last Admin: 09/03/22 08:07 Dose: 3 ml Documented By: FOREIGN Labs 09/03/22 06:10 09/03/22 06:10 Labs: Laboratory Results - last 24 hr 09/02/22 09/02/22 09/02/22 15:14 15:19 15:20 MCV 88.1 MCH 31.4 MCHC 35.7 RDW 11.6 Plt Count 265 MPV 9.8 Immature Gran % (Auto) 0.3 Neut % (Auto) 84.6 H Lymph % (Auto) 7.0 L [place] % (Auto) 7.3 Eos % (Auto) 0.3 Baso % (Auto) 0.5 Lymph # (Auto) 0.4 L [place] # (Auto) 0.4 Eos # (Auto) 0.0 Baso # (Auto) 0.0 Abs Immat Gran (auto) 0.02 Absolute Neuts (auto) 5.1 Absolute Nucleated RBC 0.000 Nucleated RBC % (auto) 0.0 PT INR Anion Gap Estim Creat Clear Calc Estimated GFR Random Glucose Calcium Magnesium Total Bilirubin AST ALT Alkaline Phosphatase Total Protein Albumin Lipase Urine Color Urine Appearance Urine pH Ur Specific [place] Urine Protein Urine Glucose (UA) Urine Ketones Urine Blood Urine Nitrite Ur Leukocyte Esterase Stool Occult Blood POSITIVE Blood Type AB Positive Antibody Screen NEGATIVE 09/02/22 09/02/22 09/02/22 15:20 15:20 15:44 MCV MCH MCHC RDW Plt Count MPV Immature Gran % (Auto) Neut % (Auto) Lymph % (Auto) [place] % (Auto) Eos % (Auto) Baso % (Auto) Lymph # (Auto) Rice # (Auto) Eos # (Auto) Baso # (Auto) Abs Immat Gran (auto) Absolute Neuts (auto) Absolute Nucleated RBC Nucleated RBC % (auto) PT 11.7 INR 1.0 Anion Gap 12 Estim Creat Clear Calc 88.9 Estimated GFR > 60 Random Glucose 100 Calcium 9.8 Magnesium 2.2 Total Bilirubin 2.6 H AST 31 ALT 52 H Alkaline Phosphatase 71 Total Protein 7.0 Albumin 4.3 Lipase 40 Urine Color Yellow Urine Appearance Clear Urine pH 5.5 Ur Specific [place] 1.020 Urine Protein Negative Urine Glucose (UA) Negative Urine Ketones Trace Urine Blood Negative Urine Nitrite Negative Ur Leukocyte Esterase Negative Stool Occult Blood Blood Type Antibody Screen 09/02/22 09/03/22 09/03/22 20:56 06:10 06:10 MCV 89.2 89.5 MCH 31.7 32.1 MCHC 35.6 35.9 RDW 11.9 11.9 Plt Count 301 231 MPV 10.0 9.7 Immature Gran % (Auto) 0.2 Neut % (Auto) 81.1 H Lymph % (Auto) 9.2 L [place] % (Auto) 8.9 Eos % (Auto) 0.2 Baso % (Auto) 0.4 Lymph # (Auto) 0.5 L [place] # (Auto) 0.5 Eos # (Auto) 0.0 Baso # (Auto) 0.0 Abs Immat Gran (auto) 0.01 Absolute Neuts (auto) 4.5 Absolute Nucleated RBC 0.000 0.000 Nucleated RBC % (auto) 0.0 0.0 PT INR Anion Gap 10 L Estim Creat Clear Calc 88.9 Estimated GFR > 60 Random Glucose 113 Calcium 8.7 D Magnesium Total Bilirubin 2.7 H AST 27 ALT 46 H Alkaline Phosphatase 56 Total Protein 5.7 L Albumin 3.7 Lipase Urine Color Urine Appearance Urine pH Ur Specific [place] Urine Protein Urine Glucose (UA) Urine Ketones Urine Blood Urine Nitrite Ur Leukocyte Esterase Stool Occult Blood Blood Type Antibody Screen Assessment and Plan (1) GI (gastrointestinal bleed): Status: Acute Plan 67-year-old male with history of hypertension and anxiety to be observed overnight for any further GI bleeding with plan for colonoscopy in the morning if bleeding persists. #rectal bleed Post-colonoscopy with polyp removal -passing dark red blood with clots per rectum -H/H stable at 16.3/45.7%-->36 -GI to assess for repeat colonoscopy , continue bowel prep for now -H/H daily, more frequent if actively bleeding #HTN- reasonably controlled -continue metoprolol, hold lisinopril #anxiety -lorazepam prn DVT prophylaxis- SCPs Full code obsv pt Time Spent With Patient Time: Total time managing care of this patient today ____ minutes. Quality Stroke Does the patient have a stroke diagnosis?: No VTE Prior VTE?: No VTE Risk Level:: Medical - moderate - high VTE Device Contraindication: N/A - Device Ordered VTE Drug Contraindication: Treatment Not Indicated
--- NOTE | 2022-09-03 12:02 | MHC.SHP ---
Pre-Procedural Eval Section A Date of Service: 09/03/22 The patient is an INPATIENT: Yes The History & Physical has been completed within 30 days and I have reviewed it.: Yes Section B Chief Complaint: posy colonoscopy bleeding Allergies: Allergies Allergy/AdvReac Type Severity Reaction Status Date / Time Seafood Allergy Severe MUSSELS-THROAT Uncoded 09/01/22 09:58 SWELLING Plan I have reviewed the history and physical and performed a pertinent physical examination on my patient. No changes have occurred unless specified. colonoscopy for post polypectomy bleed, will alos consider EGD if colo is negative Time Spent With Patient Time: Total time managing care of this patient today ____ minutes.
--- NOTE | 2022-09-03 12:35 | MHC.CM.PN ---
PETTIT 09/03/22 Male 67 s/p Colonoscopy with rectal polyp removal yesterday 09/02/22; however, Patient returned to ER 13:30pm with rectal bleeding after a BM. He is admitted under OBS. H/H has decreased today. Plan for colonoscopy this afternoon. DP home self care. Patient will transport home at discharge.
--- NOTE | 2022-09-03 14:09 | P.CONAN_ITS ---
[facility] Active Problems Active Problems: All Active Problems (Updated 09/02/22 @ 18:36 by Lorna Carty MD) GI (gastrointestinal bleed) (Acute) Past Medical History Medical History Anxiety Arthritis Diverticulitis HTN (hypertension) Family History Family History (Updated 05/26/22 @ 09:42 by Annette Rapp) Father Prostate cancer HTN (hypertension) Brother Prostate cancer Mother HTN (hypertension) Diabetes Sister Breast cancer Family history of problems with anesthesia: No Surgical History Surgical History (Updated 09/01/22 @ 10:05 by Maritza Soni) H/O colonoscopy Hx of hernia repair History of Problems with Anesthesia: No Social History Social History (Updated 05/26/22 @ 09:38 by Annette Rapp) Household Members: Spouse Are you a primary pulmonary care nurse to a significant other at home: No Do you presently have visiting nurse or other home services: No Alcohol intake: current Alcohol intake frequency: a few times a month Patient Tobacco Use Status: Never used Tobacco Smoked in Last 30 Days: No Advance Directives: No Advance Directives Information Provided: Yes service: No Current occupational status: employed Meds Allergies Allergy/AdvReac Type Severity Reaction Status Date / Time Seafood Allergy Severe MUSSELS-THROAT Uncoded 09/01/22 09:58 SWELLING Active Medications: Current Medications Acetaminophen (Acetaminophen 325 Mg Tablet) 650 mg PO Q6H PRN PRN Reason: Pain, Mild (Pain Scale 1-3) Docusate Sodium (Docusate Sodium 100 Mg Capsule) 100 mg PO DAILY PRN PRN Reason: Constipation Fluticasone Propionate (Fluticasone Propionate Nasal 16 Gm [place]) 2 spray NOSTRIL-B BEDTIME LORY Last Admin: 09/03/22 01:50 Dose: Not Given Lorazepam (Lorazepam 0.5 Mg Tablet) 0.5 mg PO Q4H PRN PRN Reason: Anxiety Last Admin: 09/02/22 21:15 Dose: 0.5 mg Metoprolol Succinate (Metoprolol Succinate Er 50 Mg Tab.Er.24h) 50 mg PO BEDTIME LORY; Protocol Last Admin: 09/02/22 20:22 Dose: 50 mg Multivitamins/Vitamin C (Multivitamin Tablet) 1 tab PO DAILY LORY Last Admin: 09/03/22 10:49 Dose: Not Given Ondansetron HCl (Ondansetron Hcl 4 Mg/2 Ml Vial) 4 mg IVPUSH Q8H PRN PRN Reason: Nausea and Vomiting Sodium Chloride (0.9 % Sodium Chloride Flush 3 Ml Syringe) [facility] Last Admin: 09/03/22 08:07 Dose: 3 ml Home Medications Medication Instructions Recorded Confirmed Last Taken Type fluticasone propionate 50 2 spray intranasal BEDTIME 05/26/22 09/02/22 09/01/22 History mcg/actuation nasal spray,suspension lisinopril 20 mg tablet 20 mg PO BEDTIME 05/26/22 09/02/22 09/01/22 History lorazepam 0.5 mg tablet 0.5 mg PO Q4H PRN Anxiety 05/26/22 09/02/22 09/01/22 History metoprolol succinate 50 mg 50 mg PO BEDTIME 05/26/22 09/02/22 09/01/22 History tablet,extended release 24 hr vit C 250 mg-vit E 90 mg-zinc 40 1 tab PO BID 09/02/22 09/02/22 09/02/22 History mg-copper 1 [id number] capsule (PreserVision AREDS-2) Exam Exam Date and Time: September 03, 2022 1409 Height,Weight and Vital Signs: Height 5 ft 11 in Weight 85.2 kg Last Vital Signs Temp 97 F 09/03/22 12:00 Pulse 80 09/03/22 12:00 Resp 18 09/03/22 12:00 BP 132/84 09/03/22 12:00 Pulse Ox 97 09/03/22 12:00 O2 Del Method Room Air 09/03/22 12:00 Pertinent Lab Results Pertinent Lab Results: Laboratory Tests 09/02/22 09/02/22 09/02/22 15:14 15:19 15:20 WBC 6.0 RBC 5.19 Hgb 16.3 Hct 45.7 MCV 88.1 MCH 31.4 MCHC 35.7 RDW 11.6 Plt Count 265 MPV 9.8 Immature Gran % (Auto) 0.3 Neut % (Auto) 84.6 H Lymph % (Auto) 7.0 L [place] % (Auto) 7.3 Eos % (Auto) 0.3 Baso % (Auto) 0.5 Lymph # (Auto) 0.4 L [place] # (Auto) 0.4 Eos # (Auto) 0.0 Baso # (Auto) 0.0 Abs Immat Gran (auto) 0.02 Absolute Neuts (auto) 5.1 Absolute Nucleated RBC 0.000 Nucleated RBC % (auto) 0.0 PT INR Sodium Potassium Chloride Carbon Dioxide Anion Gap BUN Creatinine Estim Creat Clear Calc Estimated GFR Random Glucose Calcium Magnesium Total Bilirubin AST ALT Alkaline Phosphatase Total Protein Albumin Lipase Urine Color Urine Appearance Urine pH Ur Specific [place] Urine Protein Urine Glucose (UA) Urine Ketones Urine Blood Urine Nitrite Ur Leukocyte Esterase Stool Occult Blood POSITIVE Blood Type AB Positive Antibody Screen NEGATIVE 09/02/22 09/02/22 09/02/22 15:20 15:20 15:44 WBC RBC Hgb Hct MCV MCH MCHC RDW Plt Count MPV Immature Gran % (Auto) Neut % (Auto) Lymph % (Auto) [place] % (Auto) Eos % (Auto) Baso % (Auto) Lymph # (Auto) [place] # (Auto) Eos # (Auto) Baso # (Auto) Abs Immat Gran (auto) Absolute Neuts (auto) Absolute Nucleated RBC Nucleated RBC % (auto) PT 11.7 INR 1.0 Sodium 141 Potassium 4.3 Chloride 105 Carbon Dioxide 28 Anion Gap 12 BUN 11 Creatinine 0.87 Estim Creat Clear Calc 88.9 Estimated GFR > 60 Random Glucose 100 Calcium 9.8 Magnesium 2.2 Total Bilirubin 2.6 H AST 31 ALT 52 H Alkaline Phosphatase 71 Total Protein 7.0 Albumin 4.3 Lipase 40 Urine Color Yellow Urine Appearance Clear Urine pH 5.5 Ur Specific [place] 1.020 Urine Protein Negative Urine Glucose (UA) Negative Urine Ketones Trace Urine Blood Negative Urine Nitrite Negative Ur Leukocyte Esterase Negative Stool Occult Blood Blood Type Antibody Screen 09/02/22 09/03/22 09/03/22 20:56 00:15 06:10 WBC 8.2 5.5 RBC 4.98 4.08 L Hgb 15.8 14.2 13.1 L Hct 44.4 39.9 L 36.5 L MCV 89.2 89.5 MCH 31.7 32.1 MCHC 35.6 35.9 RDW 11.9 11.9 Plt Count 301 231 MPV 10.0 9.7 Immature Gran % (Auto) 0.2 Neut % (Auto) 81.1 H Lymph % (Auto) 9.2 L [place] % (Auto) 8.9 Eos % (Auto) 0.2 Baso % (Auto) 0.4 Lymph # (Auto) 0.5 L [place] # (Auto) 0.5 Eos # (Auto) 0.0 Baso # (Auto) 0.0 Abs Immat Gran (auto) 0.01 Absolute Neuts (auto) 4.5 Absolute Nucleated RBC 0.000 0.000 Nucleated RBC % (auto) 0.0 0.0 PT INR Sodium Potassium Chloride Carbon Dioxide Anion Gap BUN Creatinine Estim Creat Clear Calc Estimated GFR Random Glucose Calcium Magnesium Total Bilirubin AST ALT Alkaline Phosphatase Total Protein Albumin Lipase Urine Color Urine Appearance Urine pH Ur Specific [place] Urine Protein Urine Glucose (UA) Urine Ketones Urine Blood Urine Nitrite Ur Leukocyte Esterase Stool Occult Blood Blood Type Antibody Screen 09/03/22 06:10 WBC RBC Hgb Hct MCV MCH MCHC RDW Plt Count MPV Immature Gran % (Auto) Neut % (Auto) Lymph % (Auto) [place] % (Auto) Eos % (Auto) Baso % (Auto) Lymph # (Auto) [place] # (Auto) Eos # (Auto) Baso # (Auto) Abs Immat Gran (auto) Absolute Neuts (auto) Absolute Nucleated RBC Nucleated RBC % (auto) PT INR Sodium 142 Potassium 4.4 Chloride 106 Carbon Dioxide 30 H Anion Gap 10 L BUN 13 Creatinine 0.87 Estim Creat Clear Calc 88.9 Estimated GFR > 60 Random Glucose 113 Calcium 8.7 D Magnesium Total Bilirubin 2.7 H AST 27 ALT 46 H Alkaline Phosphatase 56 Total Protein 5.7 L Albumin 3.7 Lipase Urine Color Urine Appearance Urine pH Ur Specific [place] Urine Protein Urine Glucose (UA) Urine Ketones Urine Blood Urine Nitrite Ur Leukocyte Esterase Stool Occult Blood Blood Type Antibody Screen Airway Mallampati Class: II TM Dist: >3cm Neck ROM: Full Heart: rrr Lungs: cta Assessment and Plan Assessment Anesthesia Assessment: Anesthesia Plan Discussed and Chart Reviewed Final Anesthetic Review Family History of Problems with Anesthesia: No History of Problems with Anesthesia: No NPO: Yes ASA Class: II Final Preanesthetic Review: No Changes in Pt Med Stat, Meds/Allgs Chart Reviewed and Consent Obtained/Reviewed Patient Risk: Intermediate Procedure Risk: Intermediate Anesthetic Plan Anesthetic Plan: MAC: Disposition: Standard PACU
--- NOTE | 2022-09-03 14:59 | P.OP_ITS ---
Operative Note Operative Note Date of Service: 09/03/22 Narrative: Operative Information Procedure Description: Colonoscopy Indication: post polypectomy bleed Anesthesia: MAC COLONOSCOPY Instrument: Olympus variable stiffness pediatric scope 190L with distal attachment Colonoscopy Monitoring: Vital signs and clinical assessment, continuous EKG monitoring, Pulse oximetry, Carbon Dioxide monitoring and blood pressure monitoring were done throughout the procedure. Procedure: The patient was placed in the left lateral decubitis position and pre-procedure medications were administered. After a digital rectal examination of the ano-rectum, the video colonoscope was inserted into the rectum and advanced through the colon to the cecum/TI. The colonoscope was slowly withdrawn in a retrograde panoramic fashion and the colon mucosa was carefully examined including a retroflexed view of the rectum. Findings and interventions are described below. Procedure Difficulty: easy Findings: Terminal Ileum-not intubated Cecum: clip noted from prior polypectomy, superficial ulceration noted, x2 additional clips placed Ascending Colon: superficial ulceration noted from prior polypectomy with some mild redness around and minor oozing and a red spot in the middle, on clip appli ed Transverse Colon -normal Descending Colon:normal Sigmoid Colon: moderate severe divertculosis Rectum: Retroflexion with moderate sized internal hemorrhoids, grade II Anorectum - normal Colon preparation: [place] Bowel Preparation Scale Right colon; 3 Transverse colon: 3 Left colon; 3 (0 = Unprepared colon segment with mucosa not seen due to solid stool that cannot be cleared. 1 = Portion of mucosa of the colon segment seen, but other areas of the colon segment not well seen due to staining, residual stool and/or opaque liquid. 2 = Minor amount of residual staining, small fragments of stool and/or opaque liquid, but mucosa of colon segment seen well. 3 = Entire mucosa of colon segment seen well with no residual staining, small fragments of stool or opaque liquid) Impression and Post Procedure Diagnosis: suspected post polypectomy bleeding internal hemorrhoids Plan: High fiber diet leaflet Avoid straining at stool, epsom salts and sitz bath, anusol supps or cream Repeat Colonoscopy per Dr Ferrer recommendations can eat and go home today Above findings were reviewed with the patient and relevant handouts were provided if indicated.
--- NOTE | 2022-09-03 14:59 | MHC.SHP ---
Pre-Procedural Eval Section A Date of Service: 09/03/22 The patient is an INPATIENT: Yes The History & Physical has been completed within 30 days and I have reviewed it.: Yes Section B Chief Complaint: posy colonoscopy bleeding Allergies: Allergies Allergy/AdvReac Type Severity Reaction Status Date / Time Seafood Allergy Severe MUSSELS-THROAT Uncoded 09/01/22 09:58 SWELLING Plan Diagnosis/Plan: Unchanged I have reviewed the history and physical and performed a pertinent physical examination on my patient. No changes have occurred unless specified. Time Spent With Patient Time: Total time managing care of this patient today ____ minutes.
--- NOTE | 2022-09-03 15:55 | PM.DS ---
DS: Providers Provider Date of Service: 09/03/22 Date of admission: 09/02/22 18:38 Primary care physician: Kaiden Mahan MD Consults: 09/02/22 18:40 Consult to Gastroenterology Routine Consulting Provider: Carlos Eduardo Ferrer Reason for consultation: post colonoscopy bleeding DS: Diagnosis Discharge Diagnosis (1) GI (gastrointestinal bleed): Status: Acute DS: Summary Hospital Course Hospital Course: Chief Complaint: post colonoscopy bleeding 67-year-old male with history of hypertension and anxiety presents to the ED at the recommendation of Gastroenterology for evaluation of bright red blood per rectum.? Patient underwent colonoscopy yesterday during which polyp was removed.? Today around 13:30, had a bowel movement and began passing dark red clots per rectum.? Since then, he states he has had 6 episodes of rectal bleeding with dark red blood and clots.? There is mild diffuse abdominal discomfort.? No nausea, vomiting, diarrhea, constipation.? Denies rectal pain.? He spoke with Dr. Ferrer who recommended he present for evaluation.? On arrival, he is hemodynamically stable.? H/H 16.3/40 5.7%.? Renal function and electrolyte levels normal.? Total bilirubin slightly elevated at 2.6.? Urinalysis unremarkable.? Stool occult blood positive.? Type and screen performed.? EKG showing NSR, rate 83, no ST/T-wave abnormality.? At the recommendation of Gastroenterology, patient to be observed overnight for any further GI bleeding with plan for colonoscopy in the morning if bleeding persists. Hospital course: Pt was observed overnight, Hematocrit went from 16 to 13, he has not been actively bleeding. He had colonoscopy showing no active bleed from polypectomy, he had internal hemorrhoid, Dr Gómez recommends Anusol at discharge. final diagnosis: lower gi bleeding mild anemia due to acute blood loss Time Spent with Patient Time attestation: Total time managing care of this patient today ____ minutes. Discharge coordination time: Greater than 30 minutes Quality: Safe Use of Opioids Does Pt have an Active Cancer Diagnosis on the Problem List?: No Quality: Stroke Does the patient have a stroke diagnosis?: No Physical Exam Vital Signs: Vital Signs: Last Vital Signs Temp 97.6 F 09/03/22 14:12 Pulse 92 09/03/22 14:12 Resp 18 09/03/22 14:12 BP 136/99 H 09/03/22 14:12 Pulse Ox 98 09/03/22 14:12 O2 Del Method Room Air 09/03/22 14:12 BMI result Body Mass Index 26.2 DS: Data Data Completed and Pending Labs on day of discharge: Laboratory Results - last 24 hr 09/02/22 09/02/22 09/02/22 15:19 15:20 15:44 WBC RBC Hgb Hct MCV MCH MCHC RDW Plt Count MPV Immature Gran % (Auto) Neut % (Auto) Lymph % (Auto) [place] % (Auto) Eos % (Auto) Baso % (Auto) Lymph # (Auto) [place] # (Auto) Eos # (Auto) Baso # (Auto) Abs Immat Gran (auto) Absolute Neuts (auto) Absolute Nucleated RBC Nucleated RBC % (auto) Sodium 141 Potassium 4.3 Chloride 105 Carbon Dioxide 28 Anion Gap 12 BUN 11 Creatinine 0.87 Estim Creat Clear Calc 88.9 Estimated GFR > 60 Random Glucose 100 Calcium 9.8 Magnesium 2.2 Total Bilirubin 2.6 H AST 31 ALT 52 H Alkaline Phosphatase 71 Total Protein 7.0 Albumin 4.3 Lipase 40 Urine Color Yellow Urine Appearance Clear Urine pH 5.5 Ur Specific [place] 1.020 Urine Protein Negative Urine Glucose (UA) Negative Urine Ketones Trace Urine Blood Negative Urine Nitrite Negative Ur Leukocyte Esterase Negative Antibody Screen NEGATIVE 09/02/22 09/03/22 09/03/22 20:56 00:15 06:10 WBC 8.2 5.5 RBC 4.98 4.08 L Hgb 15.8 14.2 13.1 L Hct 44.4 39.9 L 36.5 L MCV 89.2 89.5 MCH 31.7 32.1 MCHC 35.6 35.9 RDW 11.9 11.9 Plt Count 301 231 MPV 10.0 9.7 Immature Gran % (Auto) 0.2 Neut % (Auto) 81.1 H Lymph % (Auto) 9.2 L [place] % (Auto) 8.9 Eos % (Auto) 0.2 Baso % (Auto) 0.4 Lymph # (Auto) 0.5 L [place] # (Auto) 0.5 Eos # (Auto) 0.0 Baso # (Auto) 0.0 Abs Immat Gran (auto) 0.01 Absolute Neuts (auto) 4.5 Absolute Nucleated RBC 0.000 0.000 Nucleated RBC % (auto) 0.0 0.0 Sodium Potassium Chloride Carbon Dioxide Anion Gap BUN Creatinine Estim Creat Clear Calc Estimated GFR Random Glucose Calcium Magnesium Total Bilirubin AST ALT Alkaline Phosphatase Total Protein Albumin Lipase Urine Color Urine Appearance Urine pH Ur Specific [place] Urine Protein Urine Glucose (UA) Urine Ketones Urine Blood Urine Nitrite Ur Leukocyte Esterase Antibody Screen 09/03/22 06:10 WBC RBC Hgb Hct MCV MCH MCHC RDW Plt Count MPV Immature Gran % (Auto) Neut % (Auto) Lymph % (Auto) [place] % (Auto) Eos % (Auto) Baso % (Auto) Lymph # (Auto) [place] # (Auto) Eos # (Auto) Baso # (Auto) Abs Immat Gran (auto) Absolute Neuts (auto) Absolute Nucleated RBC Nucleated RBC % (auto) Sodium 142 Potassium 4.4 Chloride 106 Carbon Dioxide 30 H Anion Gap 10 L BUN 13 Creatinine 0.87 Estim Creat Clear Calc 88.9 Estimated GFR > 60 Random Glucose 113 Calcium 8.7 D Magnesium Total Bilirubin 2.7 H AST 27 ALT 46 H Alkaline Phosphatase 56 Total Protein 5.7 L Albumin 3.7 Lipase Urine Color Urine Appearance Urine pH Ur Specific [place] Urine Protein Urine Glucose (UA) Urine Ketones Urine Blood Urine Nitrite Ur Leukocyte Esterase Antibody Screen Discharge Plan Discharge Anticipated Discharge Date/Time: 09/03/22 15:51 Patient Disposition: Home, Self-Care Discharge Diagnosis: GI bleeding, hemorrhoid Referrals: Kaiden Mahan MD [Primary Care Provider] - 1 Week Discharge Medications: New hydrocortisone [Anusol-HC] 2.5 % cream with perineal applicator 1 appl [place] BEDTIME PRN (Reason: hemorrhoids) Qty: 30 0RF Continued PreserVision AREDS-2 250-90-40-1 mg Capsule 1 tab PO BID lisinopril 20 mg tablet 20 mg PO BEDTIME metoprolol succinate 50 mg tablet extended release 24 hr 50 mg PO BEDTIME lorazepam 0.5 mg tablet 0.5 mg PO Q4H PRN (Reason: Anxiety) fluticasone propionate 50 mcg/actuation spray,suspension 2 spray intranasal BEDTIME Discharge Orders: Discharge Order (Routine); Ordered 09/03/22 Ordered By: [facility] Diet: Advance to usual diet Activity on Discharge: As tolerated Stand Alone Forms: Patient Portal Discharge page Care Plan Goals: full recovery from gi bleeding Health Concerns: gi bleeding Plan of Treatment: us anusol cream on hemorrhoid as needed if continues to bleeed, come to Emergency eat food containing high fiber or take over the counter metamucil supplement Assessment: as above
== END 2022-09-03 17:25 | disposition home or self-care (01) ==
LOC: HO.ED 18:36 → HO.EDOVER 18:48 → HO.S3 18:56
PROVIDERS: Internal Medicine Gastroenterology; Physician Assistant; Physician Assistant Medical; Student in an Organized Health Care Education/Training Program; Admitting Provider Physician Assistant; Emergency Provider Emergency Medicine; PCP Internal Medicine; Visit Provider Internal Medicine
PROC: 0DJD8ZZ Inspection of Lower Intestinal Tract, Via Natural or Artificial Opening Endoscopic (ICD-10-PCS; CPT 45378; principal; 2022-09-03 15:40)
DX: K92.2 Gastrointestinal hemorrhage, unspecified (principal); K64.8 Other hemorrhoids; K91.840 Postprocedural hemorrhage of a digestive system organ or structure following a digestive system procedure; Y83.8 Other surgical procedures as the cause of abnormal reaction of the patient, or of later complication, without mention of misadventure at the time of the procedure; Y73.0 Diagnostic and monitoring gastroenterology and urology devices associated with adverse incidents; Y92.9 Unspecified place or not applicable; I10 Essential (primary) hypertension; Z79.899 Other long term (current) drug therapy
CPT/HCPCS: 45382; 36415; 80053; 81003; 82272; 83690; 83735; 85014; 85018; 85025; 85027; 85610; 86850; 86900; 86901; 93005; 99221; 99285

== ENCOUNTER 2022-11-26 10:51 | Outpatient (REF) | payer OTHER, SELFPAY ==
[2022-11-26 13:09] LABS: Hematocrit 45.6 % (42.0-52.0); Hemoglobin 15.6 g/dl (14.0-18.0); Mean Corpuscular HGB Conc 34.2 g/dl (31.0-36.0); Mean Corpuscular Hemoglobin 30.5 pg (27.0-33.0); Mean Corpuscular Volume 89.1 fL (80.0-98.0); Mean Platelet Volume 10.4 fL (9.4-12.4); Platelet Count 234 X10*3/uL (160-400); Red Blood Count 5.12 X10*6/uL (4.60-5.80); Red Cell Distribution Width 11.7 % (11.0-16.0); White Blood Count 3.9 X10*3/uL (4.8-10.8)
== END 2022-11-26 10:52 | disposition home or self-care (01) ==
LOC: HO.LAB 10:51
PROVIDERS: PCP Internal Medicine; Visit Provider Nurse Practitioner Family
DX: K21.9 Gastro-esophageal reflux disease without esophagitis (principal); Z71.2 Person consulting for explanation of examination or test findings
CPT/HCPCS: 36415; 85027

== ENCOUNTER 2022-11-26 10:51 | Outpatient (AMB) | payer OTHER, SELFPAY ==
--- NOTE | 2022-11-26 11:11 | A.OFFVIS_ITS ---
Intake Vital Signs 11/26/22 11:12 Height 5 ft 10 in Weight 189 lb 2.506 oz BMI 27.1 BP 143/76 H Blood Pressure Location Lt brachial Position Sitting Pulse 68 Intake Visit Reasons: Follow up Colonoscopy Intake Note: Storm presents in office as a est.patient for a post-op f/u for colo pt got it done 09.03.22 PT CC: pt reports having no concerns pt denies any other GI Issues Base Filler Required: No Accompanied by: Self / Same As Patient Allergies Seafood Allergy (Severe, Uncoded 11/26/22 11:12) MUSSELS-THROAT SWELLING HPI Follow up Colonoscopy HPI Details LAST VISIT: Screen for colon cancer Patient denies any GI, cardiac or respiratory symptoms.? Denies any issues with anesthesia in the past.? Denies any history of sleep apnea.? No history infectious diseases in the past or present.? Not on any anticoagulation therapy.? No family or personal history of colon cancer or polyps.? Patient denies melena, hematochezia, unintentional weight loss or ribbon like stools.? Discussed at length the pre-procedure,? prep, diet & medications as well as what to expect prior, during and after the procedure.?? Stressed the importance of good bowel prep. ?Recommended the use of Vaseline or Calmoseptine OTC & baby wipes with bowel movements to promote comfort.? ?Patient verbalizes understanding and agrees to plan of care.? She was given the opportunity to ask questions and all questions answered.? We will see her after the procedure.? Plan Medications New bisacodyl (Dulcolax (bisacodyl)) take 2 tabs at noon the day before your colonoscopy 10 mg (2 x 5 mg) PO ONCE 1 day 2 tabs 0RF Z12.11 polyethylene glycol 3350 (Miralax) As directed by gastroenterology department at [facility] 238 grams PO ONCE 238 grams 0RF Z12.11 COLONOSCOPY: Findings: Terminal Ileum: Not evaluated Cecum:? A 2.5 x 2 cms flat polyp in the cecum. Polyp was raised with 3 cc of Eleview and removed with hot snare. Residual polyp at the margins was ablated with cautery using the snare tip. Polypectomy site was closed with 1 hemoclip. Ascending Colon:? A 10 mm sessile polyp in the proximal AC removed with a hot snare and polyp was not retrieved. Scattered moderate diverticulosis throughout the colon Transverse Colon:? Scattered moderate diverticulosis throughout the colon Descending Colon:? Scattered moderate diverticulosis throughout the colon Sigmoid Colon:? Moderate diverticulosis Rectum:? Normal Ano-rectum:? Moderate internal hemorrhoids Colon preparation:? Good after some irrigation - scattered stool balls in the left colon due to diverticulosis Impression and Post Procedure Diagnosis: Colonoscopy Findings: One large and one medium sized polyps removed Moderate diverticulosis seen in the entire colon Moderate hemorrhoids on retroflexed exam. Plan: Letter will be sent with pathology results Repeat Colonoscopy interval based on path results - in 1 year if polyps are adenomatous (to check polypectomy site in the cecum) and 10 years if polyps are hyperplastic. PATHOLOGY RESULTS: Diagnosis Cecum, polypectomy:? Fragments of sessile serrated polyp. TODAY'S VISIT Patient is here today for follow-up and to discuss colonoscopy results. Patient denies any ill effects from the prep, anesthesia. Patient reports bleeding after colonoscopy. The next day patient started to have rectal bleeding that would not stop. Patient was admitted for observed patient and two days later patient had colonoscopy repeated and more clips were placed at cecum and 1 extra clip in ascending colon which could be the source of bleeding. Patient then was sent home stable. On 1st colonoscopy patient was found to have 1 sessile serrated polyp and will need to return in 1 year to check polypectomy site. One 10 mm polyp from ascending colon was not retrieved. Patient was found to have a moderate diverticulosis throughout the colon. Patient also was diagnosed with moderate internal hemorrhoids. Patient denies any melena, hematochezia, unintentional weight loss or ribbon like stools. Patient denies any other GI concerning symptoms. Patient is moving his bowels without any issues. Patient denies any melena, hematochezia, unintentional weight loss or ribbon like stools. [facility] Medical History (Updated 12/12/22 @ 20:31 by DIOGO Lyon-MARISOL) Anxiety Arthritis Diverticulitis Diverticulosis HTN (hypertension) Surgical History H/O colonoscopy Hx of hernia repair Family History Father Prostate cancer HTN (hypertension) Brother Prostate cancer Mother HTN (hypertension) Diabetes Sister Breast cancer Social History Household Members: Spouse Are you a primary skin care technician to a significant other at home: No Do you presently have visiting nurse or other home services: No Alcohol intake: current Alcohol intake frequency: a few times a month Patient Tobacco Use Status: Never used Tobacco service: No Current occupational status: employed Review of Systems Const Denies weight gain and Denies weight loss ENT Reports no additional complaints, Denies dysphagia and Denies odynophagia Card Reports no additional complaints Resp Reports no additional complaints GI Denies abdominal pain, Denies belching, Denies melena, Denies bloating, Denies change in bowel habits, Denies dysphagia, Denies excessive flatus, Denies dyspepsia, Denies heartburn, Denies diarrhea, Denies loose stools, Denies nausea, Denies odynophagia and Denies vomiting Reports no additional complaints Musc Reports no additional complaints Neuro Reports no additional complaints Psych Reports no additional complaints Endo Reports no additional complaints Physical Exam Vital Signs: Last Vital Signs Pulse 68 11/26/22 11:12 BP 143/76 H 11/26/22 11:12 BMI result Body Mass Index 27.1 Const General: healthy appearing, no acute distress and well developed Nutritional Appearance: well nourished Orientation/consciousness: patient oriented x3 HEENT Head: Yes normal to inspection, Yes normocephalic and Yes atraumatic Face and sinus: Yes normal facial exam Mouth: Normal oral and palatal mucosa present Throat: Yes posterior oropharynx normal, Yes tonsils normal and Yes uvula midline Eyes General: appearance normal, both eyes and all related structures Neck Neck: Yes normal visual inspection, Yes full ROM and Yes trachea midline Thyroid: Thyroid normal Resp Effort & Inspection: normal respiratory effort, able to speak in complete sentences, no tracheal deviation and symmetric chest movement Auscultation: clear to auscultation bilaterally Cardio Rate: regular rate Heart sounds: S1 normal heart sound present and S2 normal heart sound present GI Inspection: Yes normal to inspection and No distended Palpation (GI): Soft to palpation, not firm, nontender and No hepatosplenomegaly present Auscultation: normal bowel sounds General: Yes no CVA tenderness Back/Spine/Pelvis Back: no CVA tenderness Skin General skin exam: elasticity normal, turgor normal and dry skin Neuro General: patient oriented x3 Psych Appearance: grossly normal Mental Status: mental status grossly normal Speech and movement: Normal speech and movement present Assessment & Plan Assessment & Plan (1) Diverticulosis: Code(s): K57.90 - Diverticulosis of intestine, part unspecified, without perforation or abscess without bleeding Plan: Moderate diverticulosis of the colon. Patient will need to increase fiber in his diet. List of food high in fiber given to patient. (2) Sessile serrated polyp of colon: Code(s): D12.6 - Benign neoplasm of colon, unspecified Plan: Sessile serrated polyp found. Will return in 1 year to evaluate polypectomies side. In addition 1 10 mm polyp not retrieved. (3) Internal hemorrhoids without complication: Code(s): K64.8 - Other hemorrhoids Plan: Patient was encouraged to increase fiber in his diet. (4) Status post colonoscopy: Code(s): Z98.890 - Other specified postprocedural states Plan: As mentioned above in HPI patient had rectal bleed after colonoscopy. Second colonoscopy, more clips placed. Patient will return for colorectal screening in 1 year, sooner if clinically necessary. Patient will follow-up with us on as needed basis. Will do CBC today making sure that patient is not anemic. Patient denies melena, hematochezia, unintentional weight loss or ribbon like stools. Patient is agreeable to this plan and verbalizes understanding of instructions. He was given the opportunity to ask questions and all questions answered. Thank you for allowing me to participate in his care Orders: Orders Complete Blood Count no Diff 11/26/22 K21.9 - Gastro-esophageal reflux disease without esophagitis Coding Level of Care Code Est Pt Level 4 (41783) Diagnoses Diverticulosis K57.90 Sessile serrated polyp of colon D12.6 Internal hemorrhoids without complication K64.8 Status post colonoscopy Z98.890 Time Spent (min) 40 Comment 25 minutes spent with patient and additional 15 minutes spent reviewing his records
[2022-11-26 11:12] VITALS: BP 143/76; PULSE 68; BMI 27.1
== END 2022-11-26 11:54 | disposition home or self-care (01) ==
PROVIDERS: Visit Provider Nurse Practitioner Family
DX: K57.90 Diverticulosis of intestine, part unspecified, without perforation or abscess without bleeding (principal); D12.6 Benign neoplasm of colon, unspecified; K64.8 Other hemorrhoids; Z98.890 Other specified postprocedural states
CPT/HCPCS: 99214

== ENCOUNTER 2023-07-03 09:46 | Outpatient (AMB) | payer OTHER, SELFPAY ==
--- NOTE | 2023-07-03 09:49 | A.OFFVIS_ITS ---
Intake Vital Signs 07/03/23 09:50 Height 5 ft 10 in Weight 186 lb 15.232 oz BMI 26.8 BP 120/78 Blood Pressure Location Rt brachial Position Sitting Pulse 69 Pulse Source Pulse Oximeter Intake Visit Reasons: re-discuss colo Intake Note: Patient here to re- discuss colonoscopy. Last office visit November 2022. Last colonoscopy: 09-01-22. Pt states he is feeling well and denies any concerns at this time. Pt also denies any N/V/D. Allergies Seafood Allergy (Severe, Uncoded 07/03/23 09:50) MUSSELS-THROAT SWELLING HPI re-discuss colo HPI Details Diverticulosis Moderate diverticulosis of the colon. Patient will need to increase fiber in his diet. List of food high in fiber given to patient. Sessile serrated polyp of colon Sessile serrated polyp found. Will return in 1 year to evaluate polypectomies side. In addition 1 10 mm polyp not retrieved. Internal hemorrhoids without complication Patient was encouraged to increase fiber in his diet. Status post colonoscopy As mentioned above in HPI patient had rectal bleed after colonoscopy. Second colonoscopy, more clips placed. Patient will return for colorectal screening in 1 year, sooner if clinically necessary. Patient will follow-up with us on as needed basis. Will do CBC today making sure that patient is not anemic. Patient denies melena, hematochezia, unintentional weight loss or ribbon like stools. Patient is agreeable to this plan and verbalizes understanding of instructions. He was given the opportunity to ask questions and all questions answered. ? Thank you for allowing me to participate in his care Plan Orders Orders Complete Blood Count no Diff 11/26/22 K21.9 - Gastro-esophageal reflux disease without esophagitis TODAY'S VISIT Patient is here today for follow-up and to discuss going for colonoscopy. As mentioned above patient had colonoscopy in August. Patient denies any issues with anesthesia before. No history of sleep apnea. Not on any anticoagulation medication. Patient reports to be moving his bowels well without any issues. Denies any dyspepsia, dysphagia or odynophagia. Denies melena, hematochezia, unintentional weight loss or ribbon like stools. [facility] Medical History Diverticulosis Anxiety HTN (hypertension) Diverticulitis Arthritis Surgical History H/O colonoscopy Hx of hernia repair Family History Father Prostate cancer HTN (hypertension) Brother Prostate cancer Mother HTN (hypertension) Diabetes Sister Breast cancer Social History Household Members: Spouse Are you a primary manager managed care to a significant other at home: No Do you presently have visiting nurse or other home services: No Alcohol intake: current Alcohol intake frequency: a few times a month Patient Tobacco Use Status: Never used Tobacco service: No Current occupational status: employed Review of Systems Const Denies weight gain and Denies weight loss ENT Reports no additional complaints, Denies dysphagia and Denies odynophagia Card Reports no additional complaints Resp Reports no additional complaints GI Denies abdominal pain, Denies belching, Denies melena, Denies bloating, Denies change in bowel habits, Denies dysphagia, Denies excessive flatus, Denies dyspepsia, Denies heartburn, Denies diarrhea, Denies loose stools, Denies nausea, Denies odynophagia and Denies vomiting Reports no additional complaints Musc Reports no additional complaints Neuro Reports no additional complaints Psych Reports no additional complaints Endo Reports no additional complaints Physical Exam Vital Signs: Last Vital Signs Pulse 69 07/03/23 09:50 BP 120/78 07/03/23 09:50 BMI result Body Mass Index 26.8 Const General: healthy appearing, no acute distress and well developed Nutritional Appearance: well nourished Orientation/consciousness: patient oriented x3 Resp Effort & Inspection: normal respiratory effort, able to speak in complete sentences, no tracheal deviation and symmetric chest movement Auscultation: clear to auscultation bilaterally Cardio Rate: regular rate GI Inspection: Yes normal to inspection and No distended Palpation (GI): Soft to palpation, not firm, nontender and No hepatosplenomegaly present Auscultation: normal bowel sounds General: Yes no CVA tenderness Back/Spine/Pelvis Back: no CVA tenderness Skin General skin exam: elasticity normal, turgor normal and dry skin Neuro General: patient oriented x3 Psych Appearance: grossly normal Mental Status: mental status grossly normal Assessment & Plan Assessment & Plan (1) Diverticulosis: Code(s): K57.90 - Diverticulosis of intestine, part unspecified, without perforation or abscess without bleeding (2) Sessile serrated polyp of colon: Code(s): D12.6 - Benign neoplasm of colon, unspecified (3) Internal hemorrhoids without complication: Code(s): K64.8 - Other hemorrhoids Plan Patient will be scheduled to go for colonoscopy. Last colonoscopy in August he will be due again in August. Large sessile serrated polyp and 1 large polyp that was not retrieve last colonoscopy. Patient denies any issues with anesthesia in the past. No history of sleep apnea. Not on any anticoagulation medication. Denies any cardiac or respiratory symptoms. What to expect before during and after procedure discussed with patient. Discussed with patient the importance of good bowel prep and clear liquid diet day before procedure. I will see him after the procedure, sooner on as needed basis. Patient is agreeable to this plan and verbalizes understanding of instructions. He was given the opportunity to ask questions and all questions answered. Thank you for allowing me to participate in his care Medications: New bisacodyl (Dulcolax (bisacodyl)) take 4 tabs at noon the day before your colonoscopy 20 mg (4 x 5 mg) PO ONCE 1 day 4 tabs 0RF Z12.11 - Encounter for screening for malignant neoplasm of colon polyethylene glycol 3350 (Miralax) As directed by gastroenterology department at [facility] 238 grams PO ONCE 238 grams 0RF Z12.11 - Encounter for screening for malignant neoplasm of colon Coding Level of Care Code Est Pt Level 3 (38850) Diagnoses Diverticulosis K57.90 Sessile serrated polyp of colon D12.6 Internal hemorrhoids without complication K64.8 Time Spent (min) 25 Comment 15 minutes spent with patient and additional 10 minutes spent reviewing his records
[2023-07-03 09:50] VITALS: BP 120/78; PULSE 69; BMI 26.8
== END 2023-07-03 10:34 | disposition home or self-care (01) ==
PROVIDERS: PCP Internal Medicine; Visit Provider Nurse Practitioner Family
DX: K57.90 Diverticulosis of intestine, part unspecified, without perforation or abscess without bleeding (principal); D12.6 Benign neoplasm of colon, unspecified; K64.8 Other hemorrhoids
CPT/HCPCS: 99213

== ENCOUNTER → 2023-07-03 09:46 | Outpatient (BNVA) | payer OTHER, SELFPAY | PROVIDERS: PCP Internal Medicine; Visit Provider Nurse Practitioner Family ==

== ENCOUNTER 2023-11-03 06:04 | Day surgery (SDC) | payer OTHER, SELFPAY ==
--- NOTE | 2023-11-02 08:59 | P.CONAN_ITS ---
Documented by User: Karely Reynaga NP 11/02/23 09:00 HPI - Anesthesia Eval Consult details Narrative: 68yo M for Colonoscopy PMFSH Active Problems Active Problems: All Active Problems Diverticulosis (Acute) Past Medical History Medical History Diverticulosis Anxiety HTN (hypertension) Diverticulitis Arthritis Family History Family History Father Prostate cancer HTN (hypertension) Brother Prostate cancer Mother HTN (hypertension) Diabetes Sister Breast cancer Family history of problems with anesthesia: No Surgical History Surgical History H/O colonoscopy Hx of hernia repair History of Problems with Anesthesia: No Social History Social History Household Members: Spouse Are you a primary acute care physical therapist to a significant other at home: No Do you presently have visiting nurse or other home services: No Alcohol intake: current Alcohol intake frequency: a few times a month Patient Tobacco Use Status: Never used Tobacco Use of substances other than those prescribed or required for medical reasons: No Are you DNR?: No Advance Directives: No Advance Directives Information Provided: Yes service: No Current occupational status: employed Meds Allergies Allergy/AdvReac Type Severity Reaction Status Date / Time Seafood Allergy Severe MUSSELS-THROAT Uncoded 11/03/23 06:20 SWELLING Home Medications ?Medication ?Instructions ?Recorded ?Confirmed ?Last Taken ?Type fluticasone propionate 50 2 spray intranasal BEDTIME 05/26/22 11/03/23 09/01/22 History mcg/actuation nasal spray,suspension lisinopril 20 mg tablet 20 mg PO BEDTIME 05/26/22 11/03/23 09/01/22 History lorazepam 0.5 mg tablet 0.5 mg PO Q4H PRN Anxiety 05/26/22 11/03/23 09/01/22 History metoprolol succinate 50 mg 50 mg PO BEDTIME 05/26/22 11/03/23 09/01/22 History tablet,extended release 24 hr vit C 250 mg-vit E 90 mg-zinc 40 1 tab PO BID 09/02/22 11/03/23 09/02/22 History mg-copper 1 [id number] capsule (PreserVision AREDS-2) Assessment and Plan Assessment Anesthesia Assessment: Chart Reviewed Final Anesthetic Review Family History of Problems with Anesthesia: No History of Problems with Anesthesia: No Documented by User: Román Bowser MD 11/03/23 07:46 PMFSH Past Medical History Medical History Diverticulosis Anxiety HTN (hypertension) Diverticulitis Arthritis Family History Family History Father Prostate cancer HTN (hypertension) Brother Prostate cancer Mother HTN (hypertension) Diabetes Sister Breast cancer Surgical History Surgical History H/O colonoscopy Hx of hernia repair Social History Social History Household Members: Spouse Are you a primary acute care physical therapist to a significant other at home: No Do you presently have visiting nurse or other home services: No Alcohol intake: current Alcohol intake frequency: a few times a month Patient Tobacco Use Status: Never used Tobacco Use of substances other than those prescribed or required for medical reasons: No Are you DNR?: No Advance Directives: No Advance Directives Information Provided: Yes service: No Current occupational status: employed Meds Allergies Allergy/AdvReac Type Severity Reaction Status Date / Time Seafood Allergy Severe MUSSELS-THROAT Uncoded 11/03/23 06:20 SWELLING Home Medications ?Medication ?Instructions ?Recorded ?Confirmed ?Last Taken ?Type fluticasone propionate 50 2 spray intranasal BEDTIME 05/26/22 11/03/23 09/01/22 History mcg/actuation nasal spray,suspension lisinopril 20 mg tablet 20 mg PO BEDTIME 05/26/22 11/03/23 09/01/22 History lorazepam 0.5 mg tablet 0.5 mg PO Q4H PRN Anxiety 05/26/22 11/03/23 09/01/22 History metoprolol succinate 50 mg 50 mg PO BEDTIME 05/26/22 11/03/23 09/01/22 History tablet,extended release 24 hr vit C 250 mg-vit E 90 mg-zinc 40 1 tab PO BID 09/02/22 11/03/23 09/02/22 History mg-copper 1 [id number] capsule (PreserVision AREDS-2) Exam Airway Mallampati Class: II TM Dist: >3cm Neck ROM: Full Loose/Missing/Broken Teeth: Yes Assessment and Plan Assessment Anesthesia Assessment: Anesthesia Plan Discussed Final Anesthetic Review NPO: Yes ASA Class: II Final Preanesthetic Review: No Changes in Pt Med Stat, Meds/Allgs Chart Reviewed, Consent Obtained/Reviewed and Anes Risks/Benef Reviewed Patient Risk: Low Procedure Risk: Low Anesthetic Plan Anesthetic Plan: MAC: Disposition: Standard PACU
--- NOTE | 2023-11-03 06:04 | MHC.SHP ---
Pre-Procedural Eval Section A - 24 Hr Update-Section A only Date of Service: 11/03/23 Section B - Complete if H&P > 30 days Chief Complaint: screening Relevant Family History (Specify if Yes): No Relevant Social History: None Present Medications: see Short Stay Collaborative assessment Medical History: Significant History (Diverticulosis Anxiety HTN (hypertension) Diverticulitis Arthritis) History of Previous Operations: Relevant previous surgery/procedure and date(s) ( H/O colonoscopy Hx of hernia repair) Allergies: Allergies Allergy/AdvReac Type Severity Reaction Status Date / Time Seafood Allergy Severe MUSSELS-THROAT Uncoded 07/03/23 09:50 SWELLING Review of Systems Sugical H&P ROS: Negative: Constitution, Cardiovascular, Respiratory, Neurological, Psychiatric, Hem-Onc, Allergic/Immunologic, Gastrointestinal, Genitourinary, Musculoskeletal, Integumentary, Endocrine and Eyes/Ears/Nose/Throat Exam Surgical H&P Exam: Normal: HEENT, Normal: Heart, Normal: Lungs, Normal: Extremities, Normal: Abdomen, Normal: Skin and Normal: Neurological Plan Diagnosis/Plan: Unchanged I have reviewed the history and physical and performed a pertinent physical examination on my patient. No changes have occurred unless specified. Time Spent With Patient Time: Total time managing care of this patient today ____ minutes.
[2023-11-03 06:23] VITALS: BMI 25.0
[2023-11-03 06:26] VITALS: BP 125/74; PULSE 66; RESP 18; TEMP 36.1; O2SAT 96; BMI 25.0
[2023-11-03] MEDS: Lactated Ringers 1,000 ML 100 ML IVCONT (06:46)
--- NOTE | 2023-11-03 07:58 | P.OPN-COLO_ITS ---
Colonoscopy Operative Note Operative Note Date of Service: 11/03/23 Narrative: Operative Information Procedure Description: Colonoscopy Indication: screening, hx of colon polyps Anesthesia: MAC COLONOSCOPY Instrument: Olympus variable stiffness pediatric scope 190L Colonoscopy Monitoring: Vital signs and clinical assessment, continuous EKG monitoring, Pulse oximetry, Carbon Dioxide monitoring and blood pressure monitoring were done throughout the procedure. Colon withdrawal time was 10 minutes. Procedure: The patient was placed in the left lateral decubitis position and pre-procedure medications were administered. After a digital rectal examination of the ano-rectum, the video colonoscope was inserted into the rectum and advanced through the colon to the cecum/TI. The colonoscope was slowly withdrawn in a retrograde panoramic fashion and the colon mucosa was carefully examined including a retroflexed view of the rectum. Findings and interventions are described below. Procedure Difficulty: easy Findings: Terminal Ileum-normal Cecum: scar tissue and some granulation tissue noted at prior resection site, bx taken with forceps-cold Ascending Colon: normal Transverse Colon -normal Descending Colon:normal Sigmoid Colon: severe diverticulosis, and luminal narrowing Rectum: Retroflexion with small internal hemorrhoids seen, grade I Anorectum - normal Intervention: cold forceps Colon preparation: [place] Bowel Preparation Scale Right colon; 2 Transverse colon: 2 Left colon; 2 (0 = Unprepared colon segment with mucosa not seen due to solid stool that cannot be cleared. 1 = Portion of mucosa of the colon segment seen, but other areas of the colon segment not well seen due to staining, residual stool and/or opaque liquid. 2 = Minor amount of residual staining, small fragments of stool and/or opaque liquid, but mucosa of colon segment seen well. 3 = Entire mucosa of colon segment seen well with no residual staining, small fragments of stool or opaque liquid) Impression and Post Procedure Diagnosis: diverticulosis internal hemorrhoids Plan: High fiber diet leaflet Avoid straining at stool, epsom salts and sitz bath, anusol supps or cream Repeat Colonoscopy in 1-2 years or earlier if clinically indicated Above findings were reviewed with the patient and relevant handouts were provided if indicated.
[2023-11-03 08:05] VITALS: BP 105/62; PULSE 58; RESP 16; TEMP 36.6; O2SAT 98
[2023-11-03 08:20] VITALS: BP 115/73; PULSE 59; RESP 18; TEMP 36.6; O2SAT 99
== END 2023-11-03 08:50 | disposition home or self-care (01) ==
PROVIDERS: PCP Internal Medicine; Visit Provider Internal Medicine Gastroenterology
PROC: 0DJD8ZZ Inspection of Lower Intestinal Tract, Via Natural or Artificial Opening Endoscopic (ICD-10-PCS; CPT 45378; principal; 2023-11-03 07:30)
DX: Z12.11 Encounter for screening for malignant neoplasm of colon (principal); K57.30 Diverticulosis of large intestine without perforation or abscess without bleeding; K64.0 First degree hemorrhoids; K56.699 Other intestinal obstruction unspecified as to partial versus complete obstruction; Z86.010 Personal history of colon polyps
CPT/HCPCS: 45380; 88305; J2704

== ENCOUNTER → 2023-11-03 06:04 | Outpatient (BNV) | payer OTHER, SELFPAY | PROVIDERS: PCP Internal Medicine; Visit Provider Internal Medicine Gastroenterology | DX: Z12.11 Encounter for screening for malignant neoplasm of colon (principal); Z86.010 Personal history of colon polyps; K57.30 Diverticulosis of large intestine without perforation or abscess without bleeding; K64.0 First degree hemorrhoids | CPT/HCPCS: 45380 ==

== ENCOUNTER 2024-01-13 08:05 | Outpatient (AMB) | payer OTHER, SELFPAY ==
[2024-01-13 08:10] VITALS: BP 152/84; PULSE 70; O2SAT 96; BMI 25.6
--- NOTE | 2024-01-13 08:10 | MHC.OFFVIS ---
Vital Signs 01/13/24 08:10 Height 5 ft 10 in Weight 178 lb 2.136 oz BMI 25.6 BP 152/84 H Blood Pressure Location Rt brachial Position Sitting Pulse 70 Pulse Source Pulse Oximeter Pulse Oximetry (%) 96 Oxygen Delivery Method Room Air Intake Visit Reasons: S/P [place]; Dr. Gómez Intake Note: Storm presents in office today for a scheduled s/p FUV. CC; Pt denies any new concerns or complications post op. Pt is here to discuss results of their procedure. [employer] Equipment Operator Required: No Allergies seafood Allergy (Severe, Verified 01/13/24 08:16) Shortness of Breath HPI HPI S/P [place]; Dr. Gómez: Details: LAST VISIT Diverticulosis Sessile serrated polyp of colon Internal hemorrhoids without complication Plan Patient will be scheduled to go for colonoscopy. Last colonoscopy in August he will be due again in August. Large sessile serrated polyp and 1 large polyp that was not retrieve last colonoscopy. Patient denies any issues with anesthesia in the past. No history of sleep apnea. Not on any anticoagulation medication. Denies any cardiac or respiratory symptoms. What to expect before during and after procedure discussed with patient. Discussed with patient the importance of good bowel prep and clear liquid diet day before procedure. I will see him after the procedure, sooner on as needed basis. Patient is agreeable to this plan and verbalizes understanding of instructions. He was given the opportunity to ask questions and all questions answered. ? Thank you for allowing me to participate in his care Medications New bisacodyl (Dulcolax (bisacodyl)) take 4 tabs at noon the day before your colonoscopy 20 mg (4 x 5 mg) PO ONCE 1 day 4 tabs 0RF Z12.11 polyethylene glycol 3350 (Miralax) As directed by gastroenterology department at [facility] 238 grams PO ONCE 238 grams 0RF Z12.11 COLONOSCOPY Findings: Terminal Ileum-normal Cecum: scar tissue and some granulation tissue noted at prior resection site, bx taken with forceps-cold Ascending Colon: normal Transverse Colon -normal Descending Colon:normal Sigmoid Colon: severe diverticulosis, and luminal narrowing Rectum: Retroflexion with small internal hemorrhoids seen, grade I Anorectum - normal Intervention: cold forceps Colon preparation: [place] Bowel Preparation Scale Right colon; 2 Transverse colon: 2 Left colon; 2 (0 = Unprepared colon segment with mucosa not seen due to solid stool that cannot be cleared. 1 = Portion of mucosa of the colon segment seen, but other areas of the colon segment not well seen due to staining, residual stool and/or opaque liquid. 2 = Minor amount of residual staining, small fragments of stool and/or opaque liquid, but mucosa of colon segment seen well. 3 = Entire mucosa of colon segment seen well with no residual staining, small fragments of stool or opaque liquid) Impression and Post Procedure Diagnosis: diverticulosis internal hemorrhoids Plan: High fiber diet leaflet Avoid straining at stool, epsom salts and sitz bath, anusol supps or cream Repeat Colonoscopy in 1-2 years or earlier if clinically indicated TODAY'S VISIT Patient is here today for follow-up and to discuss colonoscopy results. Patient denies any ill effects from the procedure. Patient denies any complications or postprocedural hemorrhage. Patient had no polyps, moderate diverticulosis with sigmoid colon luminal narrowing. Patient reports that he is moving his bowels well without any issues 2-3 bowel movements a day. Patient denies any melena, hematochezia. Denies any abdominal pain or discomfort. Patient denies any GI concerning symptoms. [facility] Medical History Diverticulosis Anxiety HTN (hypertension) Diverticulitis Arthritis Surgical History H/O colonoscopy Hx of hernia repair Family History Father Prostate cancer HTN (hypertension) Brother Prostate cancer Mother HTN (hypertension) Diabetes Sister Breast cancer Social History Household Members: Spouse Are you a primary care partner to a significant other at home: No Do you presently have visiting nurse or other home services: No Alcohol intake: current Alcohol intake frequency: a few times a month Patient Tobacco Use Status: Never used Tobacco service: No Current occupational status: employed [employer] Denies weight gain and Denies weight loss ENT Reports no additional complaints, Denies dysphagia and Denies odynophagia Card Reports no additional complaints Resp Reports no additional complaints GI Denies abdominal pain, Denies belching, Denies melena, Denies bloating, Denies change in bowel habits, Denies dysphagia, Denies excessive flatus, Denies dyspepsia, Denies heartburn, Denies diarrhea, Denies loose stools, Denies nausea, Denies odynophagia and Denies vomiting Reports no additional complaints Musc Reports no additional complaints Neuro Reports no additional complaints Psych Reports no additional complaints Endo Reports no additional complaints Physical Exam Vital Signs: BMI result Body Mass Index 25.6 Const General: healthy appearing, no acute distress and well developed Nutritional Appearance: well nourished Orientation/consciousness: patient oriented x3 Resp Effort & Inspection: normal respiratory effort, able to speak in complete sentences, no tracheal deviation and symmetric chest movement Auscultation: clear to auscultation bilaterally Cardio Rate: regular rate GI Inspection: Yes normal to inspection and No distended Palpation (GI): Soft to palpation, not firm, nontender and No hepatosplenomegaly present Auscultation: normal bowel sounds General: Yes no CVA tenderness Back/Spine/Pelvis Back: no CVA tenderness Skin General skin exam: elasticity normal, turgor normal and dry skin Neuro General: patient oriented x3 Psych Appearance: grossly normal Mental Status: mental status grossly normal Assessment & Plan Assessment & Plan (1) Diverticulosis: Code(s): K57.90 - Diverticulosis of intestine, part unspecified, without perforation or abscess without bleeding Category: Medical (2) Status post colonoscopy: Code(s): Z98.890 - Other specified postprocedural states Plan Follow-up screening in 1-2 years. Patient will follow-up in the office on as needed basis. He is agreeable to this plan and verbalizes understanding of instructions. He was given the opportunity to ask questions and all questions answered. Thank you for allowing me to participate in his care Coding Level of Care Code Est Pt Level 3 (92719) Diagnoses Diverticulosis K57.90 Status post colonoscopy Z98.890 Time Spent (min) 25 Comment 15 minutes spent with patient and additional 10 minutes spent reviewing his records
== END 2024-01-13 08:38 | disposition home or self-care (01) ==
PROVIDERS: PCP Internal Medicine; Visit Provider Nurse Practitioner Family
DX: K57.90 Diverticulosis of intestine, part unspecified, without perforation or abscess without bleeding (principal); Z98.890 Other specified postprocedural states
CPT/HCPCS: 99213

== ENCOUNTER → 2024-01-13 08:05 | Outpatient (BNVA) | payer OTHER, SELFPAY | PROVIDERS: PCP Internal Medicine; Visit Provider Nurse Practitioner Family ==

== ENCOUNTER 2025-01-11 08:23 | Outpatient (AMB) | payer OTHER, SELFPAY ==
[2025-01-11 08:26] VITALS: BP 136/80; PULSE 68; O2SAT 97; BMI 24.5
--- NOTE | 2025-01-11 08:26 | A.OFFVIS_ITS ---
Vital Signs 01/11/25 08:26 Height 5 ft 10 in Weight 171 lb BMI 24.5 BP 136/80 Blood Pressure Location Rt brachial Position Sitting Pulse 68 Pulse Source Pulse Oximeter Pulse Oximetry (%) 97 Oxygen Delivery Method Room Air Intake Visit Reasons: 1 yr follow up Intake Note: Est pt for 1 year recall, mgmt of diverticulosis + hx of diverticulitis. CC; Pt denies any new GI changes or new sx. Chief Dispatcher Required: No Accompanied by: Self / Same As Patient Allergies seafood Allergy (Severe, Verified 01/11/25 08:26) Shortness of Breath HPI HPI 1 yr follow up: Details: LAST VISIT: Diverticulosis Status post colonoscopy Plan Follow-up screening in 1-2 years. Patient will follow-up in the office on as needed basis. He is agreeable to this plan and verbalizes understanding of instructions. He was given the opportunity to ask questions and all questions answered. TODAY'S VISIT: Patient is here today for follow-up and to discuss going for colonoscopy. Last colonoscopy was in October of 2023 and recommendation was made for 1-2 year follow- up. Patient denies any issues with anesthesia in the past. No history of sleep apnea. Not on any anticoagulation medication. Patient reports that he is moving his bowels without any issues. Denies any cardiac or respiratory symp toms. [facility] Medical History Diverticulosis Anxiety HTN (hypertension) Diverticulitis Arthritis Surgical History H/O colonoscopy Hx of hernia repair Family History Father Prostate cancer HTN (hypertension) Brother Prostate cancer Mother HTN (hypertension) Diabetes Sister Breast cancer Social History Household Members: Spouse Are you a primary career professional to a significant other at home: No Do you presently have visiting nurse or other home services: No Alcohol intake: current Alcohol intake frequency: a few times a month Patient Tobacco Use Status: Never used Tobacco service: No Current occupational status: employed [employer] Denies weight gain and Denies weight loss ENT Reports no additional complaints, Denies dysphagia and Denies odynophagia Card Reports no additional complaints Resp Reports no additional complaints GI Denies abdominal pain, Denies belching, Denies melena, Denies bloating, Denies change in bowel habits, Denies dysphagia, Denies excessive flatus, Denies dyspepsia, Denies heartburn, Denies diarrhea, Denies loose stools, Denies nausea, Denies odynophagia and Denies vomiting Reports no additional complaints Musc Reports no additional complaints Neuro Reports no additional complaints Psych Reports no additional complaints Endo Reports no additional complaints Physical Exam Vital Signs: Last Vital Signs Pulse 68 01/11/25 08:26 BP 136/80 01/11/25 08:26 Pulse Ox 97 01/11/25 08:26 Oxygen Delivery Method Room Air 01/11/25 08:26 BMI result Body Mass Index 24.5 Const General: healthy appearing, no acute distress and well developed Nutritional Appearance: well nourished Orientation/consciousness: patient oriented x3 Resp Effort & Inspection: normal respiratory effort, able to speak in complete sentences, no tracheal deviation and symmetric chest movement Auscultation: clear to auscultation bilaterally Cardio Rate: regular rate GI Inspection: Yes normal to inspection and No distended Palpation (GI): Soft to palpation, not firm, nontender and No hepatosplenomegaly present Auscultation: normal bowel sounds General: Yes no CVA tenderness Back/Spine/Pelvis Back: no CVA tenderness Skin General skin exam: elasticity normal, turgor normal and dry skin Neuro General: patient oriented x3 Psych Appearance: grossly normal Mental Status: mental status grossly normal Assessment & Plan Assessment & Plan (1) Diverticulosis: Code(s): K57.90 - Diverticulosis of intestine, part unspecified, without perforation or abscess without bleeding Category: Medical (2) Screen for colon cancer: Code(s): Z12.11 - Encounter for screening for malignant neoplasm of colon Plan Patient is due to go for another colonoscopy. Denies any issues with anesthesia in the past. No history of sleep apnea. Not on any anticoagulation medication. Patient denies any cardiac or respiratory symptoms. What to expect before during and after procedure discussed with patient. Stressed the importance of good bowel prep and clear liquid diet there before procedure. Patient will follow-up with us after the procedure. Patient will call us if he will have any GI concerning symptoms. He is agreeable to this plan and verbalizes understanding of instructions. He was given the opportunity to ask questions and all questions answered. Thank you for allowing me to participate in his care Medications: New bisacodyl (Dulcolax (bisacodyl)) take 4 tabs at noon the day before your colonoscopy 20 mg (4 x 5 mg) PO ONCE 4 tabs 0RF constipation 1 day Z12.11 - Encounter for screening for malignant neoplasm of colon polyethylene glycol 3350 (Miralax) As directed by gastroenterology department at [facility] 238 grams PO ONCE 238 grams 0RF Z12.11 - Encounter for screening for malignant neoplasm of colon Coding Level of Care Code Est Pt Level 3 (30558) Diagnoses Diverticulosis K57.90 Screen for colon cancer Z12.11 Time Spent (min) 30 Comment 20 minutes spent with patient and additional 10 minutes spent reviewing his records
== END 2025-01-11 09:37 | disposition home or self-care (01) ==
LOC: HO.HGI 08:24
PROVIDERS: PCP Internal Medicine; Visit Provider Nurse Practitioner Family
DX: Z01.818 Encounter for other preprocedural examination (principal); Z12.11 Encounter for screening for malignant neoplasm of colon; K57.90 Diverticulosis of intestine, part unspecified, without perforation or abscess without bleeding
CPT/HCPCS: S0285